=== PATIENT | male | born 1990 | race American Indian/Alaskan Native ===

== ENCOUNTER 2017-12-01 15:10 | Emergency (ER) | payer SELFPAY ==
[2017-12-01 15:45] VITALS: BP 111/55
[2017-12-01 17:05] LABS: Basophils % (Auto) 0.4 % (0.0-1.8); Eosinophils % (Auto) 0.1 % (0.0-4.3); Hematocrit 45.2 % (35.5-45.6); Hemoglobin 15.1 gm/dl (11.8-15.2); Lymphocytes # (Auto) 1.7 K/mm3 (1.2-5.4); Mean Corpuscular HGB Conc 33 % (32-34); Mean Corpuscular Hemoglobin 31 pg (28-32); Mean Corpuscular Volume 91 fl (84-94); Monocytes # (Auto) 0.7 K/mm3 (0.0-0.8); Monocytes % (Auto) 7.6 % (0.0-7.3); Platelet Count 205 K/mm3 (140-440); Red Blood Count 4.95 M/mm3 (3.65-5.03); Red Cell Distribution Width 14.5 % (13.2-15.2)
[2017-12-01 17:19] LABS: Alanine Aminotransferase 17 units/L (7-56); Albumin 4.3 g/dL (3.9-5); BUN/Creatinine Ratio 14; Blood Urea Nitrogen 13 mg/dL (9-20); Hemolysis Index 8
== END 2017-12-02 00:53 | disposition left against medical advice (07) ==
LOC: ED 15:10
DX: Z53.21 Procedure and treatment not carried out due to patient leaving prior to being seen by health care provider (principal)
CPT/HCPCS: 36415; 80053; 85025

== ENCOUNTER 2018-02-14 09:30 | Inpatient (IN) | payer OTHER ==
[2018-02-14] MEDS ORDERED: ZOFRAN IV ONE ×2 (10:00→12:21)
[2018-02-14] MEDS ORDERED: NACL 0.9% 1000 ML 1,000 ML IV ONE ×2 (10:00→12:37)
[2018-02-14] MEDS ORDERED: PROTONIX IV ONE (10:00)
[2018-02-14] MEDS ORDERED: MORPHINE IV ONE ×2 (10:32→14:25)
[2018-02-14 10:55] LABS: Basophils % (Auto) 0.5 % (0.0-1.8); Eosinophils % (Auto) 0.3 % (0.0-4.3); Hematocrit 46.5 % (35.5-45.6); Hemoglobin 15.4 gm/dl (11.8-15.2); Lymphocytes # (Auto) 1.9 K/mm3 (1.2-5.4); Lymphocytes % (Auto) 22.5 % (13.4-35.0); Mean Corpuscular HGB Conc 33 % (32-34); Mean Corpuscular Hemoglobin 30 pg (28-32); Mean Corpuscular Volume 91 fl (84-94); Monocytes # (Auto) 0.8 K/mm3 (0.0-0.8); Monocytes % (Auto) 9.5 % (0.0-7.3); Red Blood Count 5.11 M/mm3 (3.65-5.03); Red Cell Distribution Width 14.2 % (13.2-15.2)
[2018-02-14 10:58] LABS: Amorphous Crystals,Urine Few; Bacteria,Urine 1+ /HPF (Negative); Bilirubin,Urine NEG (Negative); Blood,Urine NEG (Negative); Color,Urine Yellow (Yellow); Mucus,Urine FEW /HPF; Protein,Urine <15 mg/dL mg/dL (Negative)
--- NOTE | 2018-02-14 11:01 | XRay Report ---
AP CHEST: HISTORY: Pain AP view of the chest demonstrates a normal mediastinal and cardiac contour with clear lungs and normal bony and soft tissue structures. IMPRESSION: Unremarkable AP chest.
[2018-02-14 11:09] LABS: Amphetamine Screen,Urine PRESUMPTIVE NEGATIVE; Benzodiazepines Screen,Urine PRESUMPTIVE NEGATIVE; Methadone Screen,Urine PRESUMPTIVE NEGATIVE; Opiate Screen,Urine PRESUMPTIVE NEGATIVE
[2018-02-14 11:10] LABS: Platelet Count 183 K/mm3 (140-440)
[2018-02-14 11:10] LABS: INR 0.98 (0.87-1.13)
[2018-02-14 11:11] LABS: BUN/Creatinine Ratio 15; Blood Urea Nitrogen 16 mg/dL (9-20); Calcium 8.8 mg/dL (8.4-10.2); Hemolysis Index 3
[2018-02-14 11:11] LABS: Partial Thromboplastin Time 27.9 Sec. (24.2-36.6)
[2018-02-14 11:13] LABS: Albumin 4.3 g/dL (3.9-5); Bilirubin,Direct 0.2 mg/dL (0-0.2)
[2018-02-14 11:38] LABS: Cannabinoid Screen,Urine PRESUMPTIVE POSITIVE; Cocaine Screen,Urine PRESUMPTIVE POSITIVE
[2018-02-14] MEDS ORDERED: NACL ONE (12:12)
--- NOTE | 2018-02-14 12:14 | Cat Scan Report ---
CT ABDOMEN PELVIS WITH CONTRAST: HISTORY: Abdominal pain, GI bleeding. COMPARISON: none. TECHNIQUE: Helical CT in 1.25mm intervals following IV contrast. Sagittal and coronal reconstructions. FINDINGS: Lung bases: Normal. Liver: Normal. Biliary system: Normal. Pancreas: Normal. Spleen: Normal. Kidneys/ureters/bladder: Normal. Adrenal glands: Normal. Aorta: Normal. Intestines: Normal. Appendix: Normal. Pelvic viscera: Normal. Ascites: None. Adenopathy: None. Musculoskeletal: Normal. IMPRESSION: Unremarkable CT scan of the abdomen and pelvis with contrast.
[2018-02-14] MEDS ORDERED: ZOFRAN ONE (12:18)
--- NOTE | 2018-02-14 12:29 | Emergency Department Report ---
ED General Adult HPI - General Chief complaint: Abdominal Pain Stated complaint: ABD PAIN Time Seen by Provider: 02/14/18 10:00 Source: EMS Mode of arrival: Stretcher Limitations: No Limitations - History of Present Illness Initial comments: Patient is a 27-year-old male who was transported to this facility via EMS. Paramedics state that there was a large can that was filled with several ounces of hussain blood. The patient is somewhat lethargic and somewhat unwilling to provide any historical information. He complains of abdominal pain but doesn't specify where. He says some ongoing nausea but no repeat hematemesis. Apparently the patient has been admitted more and wants with hematemesis. Records indicate that he had previous endoscopy showing gastritis. His last admission was in 2014. Apparently he is abusing cocaine. -: unknown Severity scale (0 -10): 9 Quality: other (patient unwilling to communicate) Consistency: constant Improves with: none Worsens with: none Associated Symptoms: nausea/vomiting. denies: chest pain, shortness of breath - Related Data Home Medications Medication Instructions Recorded Confirmed Last Taken Omeprazole Magnesium [PriLOSEC Otc] 20 mg PO BID 11/17/14 09/28/16 11/14/14 Previous Rx's Medication Instructions Recorded Last Taken Type Ondansetron [Zofran ODT TAB] 4 mg PO Q6H #10 tab.rapdis 11/17/14 Unknown Rx Famotidine [Pepcid] 10 mg PO BID #30 tablet 06/24/15 Unknown Rx Omeprazole Magnesium [PriLOSEC Otc] 40 mg PO QDAY #60 tablet. 06/24/15 Unknown Rx Famotidine [Pepcid] 20 mg PO BID #30 tablet 09/28/16 Unknown Rx HYDROcodone/APAP 5-325 [[place] 1 each PO Q6HR PRN #10 tablet 09/28/16 Unknown Rx 5/325] Promethazine [Phenergan TAB] 25 mg PO Q6HR PRN #20 tab 09/28/16 Unknown Rx Promethazine [Phenergan] 25 mg [place] Q6HR PRN #10 supp.rect 09/28/16 Unknown Rx Allergies Allergy/AdvReac Type Severity Reaction Status Date / Time No Known Allergies Allergy Verified 02/14/18 09:52 ED Review of Systems ROS: Stated complaint: ABD PAIN Other details as noted in HPI Comment: Unobtainable due to pts medical conditions ED Past Medical Hx - Past Medical History Hx Congestive Heart Failure: No Hx Diabetes: No Hx Asthma: Yes Hx COPD: No Additional medical history: Gastritis, duodenitis. Hx of ETOH abuse - Surgical History Additional Surgical History: tonsillectomy - Social History Smoking Status: Current Every Day Smoker Substance Use Type: Alcohol, Cocaine, Marijuana - Medications Home Medications: Home Medications Medication Instructions Recorded Confirmed Last Taken Type Omeprazole Magnesium [PriLOSEC Otc] 20 mg PO BID 11/17/14 09/28/16 11/14/14 History Ondansetron [Zofran ODT TAB] 4 mg PO Q6H #10 tab.rapdis 11/17/14 09/28/16 Unknown Rx Famotidine [Pepcid] 10 mg PO BID #30 tablet 06/24/15 09/28/16 Unknown Rx Omeprazole Magnesium [PriLOSEC Otc] 40 mg PO QDAY #60 tablet. 06/24/15 Unknown Rx Famotidine [Pepcid] 20 mg PO BID #30 tablet 09/28/16 Unknown Rx HYDROcodone/APAP 5-325 [[place] 1 each PO Q6HR PRN #10 tablet 09/28/16 Unknown Rx 5/325] Promethazine [Phenergan TAB] 25 mg PO Q6HR PRN #20 tab 09/28/16 Unknown Rx Promethazine [Phenergan] 25 mg [place] Q6HR PRN #10 supp.rect 09/28/16 Unknown Rx ED Physical Exam - General Limitations: No Limitations General appearance: in no apparent distress, lethargic - Head Head exam: Present: atraumatic, normocephalic - Eye Eye exam: Present: normal appearance, PERRL, EOMI. Absent: scleral icterus - ENT ENT exam: Present: mucous membranes moist - Neck Neck exam: Present: normal inspection. Absent: tenderness, meningismus - Respiratory Respiratory exam: Present: normal lung sounds bilaterally. Absent: respiratory distress - Cardiovascular Cardiovascular Exam: Present: regular rate, normal rhythm. Absent: systolic murmur, diastolic murmur, rubs, gallop - GI/Abdominal GI/Abdominal exam: Present: soft, tenderness (somewhat diffusely), normal bowel sounds. Absent: distended, guarding, rebound, rigid, organomegaly, mass, bruit , pulsatile mass - Rectal Rectal exam: Present: deferred - Extremities Exam Extremities exam: Present: normal inspection - Back Exam Back exam: Present: normal inspection. Absent: CVA tenderness (R), CVA tenderness (L) - Neurological Exam Neurological exam: Present: alert, oriented X3, CN II-XII intact. Absent: motor sensory deficit - Psychiatric Psychiatric exam: Present: normal mood, flat affect - Skin Skin exam: Present: warm, dry, intact, normal color. Absent: rash ED Course Vital Signs 02/14/18 02/14/18 02/14/18 09:47 09:53 10:00 Temperature 98.4 F Pulse Rate 54 L 50 L 43 L Respiratory 15 14 11 L Rate Blood Pressure 118/71 121/66 O2 Sat by Pulse 100 100 100 Oximetry 02/14/18 02/14/18 02/14/18 10:15 10:30 10:46 Temperature Pulse Rate 54 L 42 L 48 L Respiratory 11 L 10 L 8 L Rate Blood Pressure 117/68 127/75 127/75 O2 Sat by Pulse 99 99 100 Oximetry 02/14/18 02/14/18 02/14/18 11:00 11:16 11:30 Temperature Pulse Rate 45 L 45 L 46 L Respiratory 10 L 20 7 L Rate Blood Pressure 127/75 127/75 127/75 O2 Sat by Pulse 98 97 91 Oximetry 02/14/18 11:46 Temperature Pulse Rate 45 L Respiratory 8 L Rate Blood Pressure 127/75 O2 Sat by Pulse 99 Oximetry - Reevaluation(s) Reevaluation #1: Given the patient Protonix and a volume bolus. His urine was positive for cocaine. 02/14/18 12:39 02/14/18 12:40 I wouldn't be surprised that the patient's CK comes back elevated. This is yet pending. A CT of the abdomen showed nothing acute. Reevaluation #2: Abdomen is no longer tender. Patient states that he needs more fluid. Additional IV fluid is ordered. CK is yet pending. I spoke to Dr. Vasquez. The patient is admitted for further care and evaluation in stable condition. 02/14/18 12:42 ED Medical Decision Making - Lab Data Result diagrams: 02/14/18 10:27 02/14/18 10:27 Laboratory Results - last 24 hr 02/14/18 02/14/18 02/14/18 10:27 10:27 10:27 WBC 8.3 RBC 5.11 H Hgb 15.4 H Hct 46.5 H MCV 91 MCH 30 MCHC 33 RDW 14.2 Plt Count 183 Lymph % (Auto) 22.5 [place] % (Auto) 9.5 H Eos % (Auto) 0.3 Baso % (Auto) 0.5 Lymph # 1.9 [place] # 0.8 Eos # 0.0 Baso # 0.0 Seg Neutrophils % 67.2 Seg Neutrophils # 5.6 PT INR APTT Sodium 140 Potassium 3.7 Chloride 102.6 Carbon Dioxide 22 Anion Gap 19 BUN 16 Creatinine 1.1 Estimated GFR > 60 BUN/Creatinine Ratio 15 Glucose 106 H Lactic Acid Calcium 8.8 Magnesium Total Bilirubin 1.00 Direct Bilirubin 0.2 Indirect Bilirubin 0.8 AST 18 ALT 22 Alkaline Phosphatase 64 Total Protein 6.9 Albumin 4.3 Albumin/Globulin Ratio 1.7 Lipase 36 Urine Color Urine Turbidity Urine pH Ur Specific [place] Urine Protein Urine Glucose (UA) Urine Ketones Urine Blood Urine Nitrite Urine Bilirubin Urine Urobilinogen Ur Leukocyte Esterase Urine WBC (Auto) Urine RBC (Auto) U Epithel Cells (Auto) Urine Bacteria (Auto) Amorphous Crystals Urine Mucus Urine Opiates Screen Urine Methadone Screen Ur Barbiturates Screen Ur Phencyclidine Scrn Ur Amphetamines Screen U Benzodiazepines Scrn Urine Cocaine Screen U Marijuana (THC) Screen Drugs of Abuse Note Blood Type Antibody Screen 02/14/18 02/14/18 02/14/18 10:27 10:27 10:33 WBC RBC Hgb Hct MCV MCH MCHC RDW Plt Count Lymph % (Auto) [place] % (Auto) Eos % (Auto) Baso % (Auto) Lymph # [place] # Eos # Baso # Seg Neutrophils % Seg Neutrophils # PT 13.5 INR 0.98 APTT 27.9 Sodium Potassium Chloride Carbon Dioxide Anion Gap BUN Creatinine Estimated GFR BUN/Creatinine Ratio Glucose Lactic Acid 1.90 Calcium Magnesium 1.80 Total Bilirubin Direct Bilirubin Indirect Bilirubin AST ALT Alkaline Phosphatase Total Protein Albumin Albumin/Globulin Ratio Lipase Urine Color Urine Turbidity Urine pH Ur Specific [place] Urine Protein Urine Glucose (UA) Urine Ketones Urine Blood Urine Nitrite Urine Bilirubin Urine Urobilinogen Ur Leukocyte Esterase Urine WBC (Auto) Urine RBC (Auto) U Epithel Cells (Auto) Urine Bacteria (Auto) Amorphous Crystals Urine Mucus Urine Opiates Screen Urine Methadone Screen Ur Barbiturates Screen Ur Phencyclidine Scrn Ur Amphetamines Screen U Benzodiazepines Scrn Urine Cocaine Screen U Marijuana (THC) Screen Drugs of Abuse Note Blood Type Antibody Screen 02/14/18 02/14/18 02/14/18 10:33 10:35 10:35 WBC RBC Hgb Hct MCV MCH MCHC RDW Plt Count Lymph % (Auto) [place] % (Auto) Eos % (Auto) Baso % (Auto) Lymph # [place] # Eos # Baso # Seg Neutrophils % Seg Neutrophils # PT INR APTT Sodium Potassium Chloride Carbon Dioxide Anion Gap BUN Creatinine Estimated GFR BUN/Creatinine Ratio Glucose Lactic Acid Calcium Magnesium Total Bilirubin Direct Bilirubin Indirect Bilirubin AST ALT Alkaline Phosphatase Total Protein Albumin Albumin/Globulin Ratio Lipase Urine Color Yellow Urine Turbidity Clear Urine pH 6.0 Ur Specific [place] 1.025 Urine Protein <15 mg/dl Urine Glucose (UA) Neg Urine Ketones Tr Urine Blood Neg Urine Nitrite Neg Urine Bilirubin Neg Urine Urobilinogen 4.0 Ur Leukocyte Esterase Neg Urine WBC (Auto) 5.0 Urine RBC (Auto) 2.0 U Epithel Cells (Auto) < 1.0 Urine Bacteria (Auto) 1+ Amorphous Crystals Few Urine Mucus Few Urine Opiates Screen Presumptive negative Urine Methadone Screen Presumptive negative Ur Barbiturates Screen Presumptive negative Ur Phencyclidine Scrn Presumptive negative Ur Amphetamines Screen Presumptive negative U Benzodiazepines Scrn Presumptive negative Urine Cocaine Screen Presumptive positive U Marijuana (THC) Screen Presumptive positive Drugs of Abuse Note Disclamer Blood Type A POSITIVE Antibody Screen Negative - EKG Data -: EKG Interpreted by Ar EKG shows normal: sinus rhythm, axis, intervals, QRS complexes, ST-T waves Rate: bradycardia - EKG Data Interpretation: no acute changes - Radiology Data Radiology results: report reviewed Critical care attestation.: If time is entered above; I have spent that time in minutes in the direct care of this critically ill patient, excluding procedure time. ED Disposition Clinical Impression: Upper GI bleeding, Cocaine abuse Disposition: 09 OP ADMIT IP TO THIS HOSP Is pt being admited?: Yes Does the pt Need Aspirin: No (hold due to GI bleeding) Condition: Stable Referrals: PRIMARY CARE, [Primary Care Provider] - 3-5 Days Time of Disposition: 12:43
[2018-02-14 12:47] LABS: Creatine Kinase MB 1.4 ng/mL (0.0-4.0)
[2018-02-14] MEDS ORDERED: MORPHINE ONE (14:22)
--- NOTE | 2018-02-14 18:17 | History and Physical Report ---
History of Present Illness Date of examination: 02/14/18 Date of admission: 02/14/18 12:29 Chief complaint: Chief complaint: Vomiting blood since 2 days. History of present illness: -History of Present Illness 27-year-old -Romanian male with no significant past medical history except for gastroesophageal reflux disease and was on PPIs in the past about 3 years ago comes in for vomiting hussain blood since last 2 days. Had about 6-8 episodes of hussain blood in vomit in the last 48 hours. Patient has been taking Goody powders for headaches on a regular basis. Has some lightheadedness. No syncope. No fever no chills. He had a previous endoscopy showing gastritis and 2015 Past Medical History Hx Asthma: Yes Additional medical history: Gastritis, duodenitis. Hx of ETOH abuse Surgical History Additional Surgical History: tonsillectomy Social History Smoking Status: Current Every Day Smoker Substance Use Type: Alcohol, Cocaine, Marijuana Medications Home Medications: Home Medications Medication Instructions Recorded Confirmed Last Taken Type Omeprazole Magnesium [PriLOSEC Otc] 20 mg PO BID 11/17/14 09/28/16 11/14/14 History Ondansetron [Zofran ODT TAB] 4 mg PO Q6H #10 tab.rapdis 11/17/14 09/28/16 Unknown Rx Famotidine [Pepcid] 10 mg PO BID #30 tablet 06/24/15 09/28/16 Unknown Rx Omeprazole Magnesium [PriLOSEC Otc] 40 mg PO QDAY #60 tablet. 06/24/15 Unknown Rx Famotidine [Pepcid] 20 mg PO BID #30 tablet 09/28/16 Unknown Rx HYDROcodone/APAP 5-325 [[place] 1 each PO Q6HR PRN #10 tablet 09/28/16 Unknown Rx 5/325] Promethazine [Phenergan TAB] 25 mg PO Q6HR PRN #20 tab 09/28/16 Unknown Rx Promethazine [Phenergan] 25 mg [place] Q6HR PRN #10 supp.rect 09/28/16 Unknown Rx Medications and Allergies Allergies Allergy/AdvReac Type Severity Reaction Status Date / Time No Known Allergies Allergy Verified 02/14/18 09:52 Home Medications Medication Instructions Recorded Confirmed Last Taken Type Omeprazole Magnesium [PriLOSEC Otc] 20 mg PO BID 01/12/3109/28/16 11/14/14 History Ondansetron [Zofran ODT TAB] 4 mg PO Q6H #10 tab.rapdis 11/17/14 09/28/16 Unknown Rx Famotidine [Pepcid] 10 mg PO BID #30 tablet 06/24/15 09/28/16 Unknown Rx Omeprazole Magnesium [PriLOSEC Otc] 40 mg PO QDAY #60 tablet. 06/24/15 Unknown Rx Famotidine [Pepcid] 20 mg PO BID #30 tablet 09/28/16 Unknown Rx HYDROcodone/APAP 5-325 [[place] 1 each PO Q6HR PRN #10 tablet 09/28/16 Unknown Rx 5/325] Promethazine [Phenergan TAB] 25 mg PO Q6HR PRN #20 tab 09/28/16 Unknown Rx Promethazine [Phenergan] 25 mg [place] Q6HR PRN #10 supp.rect 09/28/16 Unknown Rx Review of Systems All systems: negative Constitutional: no weight loss, no weight gain, no fever, no chills, no sweats, no night sweats Ears, nose, mouth and throat: no dysphagia, no hoarseness, no sore throat, no swelling in mouth, no swelling in throat, no odynophagia Cardiovascular: no chest pain, no orthopnea, no palpitations, no rapid/ irregular heart beat, no edema, no syncope, no lightheadedness, no shortness of breath Respiratory: no cough, no cough with sputum, no excessive sputum, no hemoptysis , no shortness of breath, no dyspnea on exertion Gastrointestinal: hematemesis, coffee ground emesis, heartburn, no abdominal pain, no nausea, no vomiting, no diarrhea, no constipation, no change in bowel habits Genitourinary Male: no dysuria, no hematuria, no flank pain, no discharge, no urinary frequency, no urinary hesitancy, no nocturia, no incontinence Rectal: pain, other (occult blood positive stools) Musculoskeletal: no neck stiffness, no neck pain, no shooting arm pain, no arm numbness/tingling, no low back pain, no shooting leg pain, no leg numbness/ tingling, no redness of joints Integumentary: no rash, no pruritis, no redness, no sores, no wounds, no jaundice, no boils, no blisters Neurological: no head injury, no transient paralysis, no paralysis, no weakness , no parathesias, no numbness, no tingling, no seizures, no syncope, no tremors , no ataxia, no lack of coordination Psychiatric: no anxiety, no memory loss, no change in sleep habits, no sleep disturbances, no insomnia, no hypersomnia, no change in appetite, no change in libido, no suicidal ideation, no disorientation, no hallucinations Endocrine: no cold intolerance, no heat intolerance, no polyphagia, no excessive thirst, no polydipsia, no polyuria, no nocturia, no excessive sweating , no flushing, no weight change Hematologic/Lymphatic: no easy bruising, no easy bleeding Allergic/Immunologic: no urticaria, no allergic rhinitis, no wheezing Exam - Physical Exam Narrative exam: Lying in bed comfortably. Vomited blood 2 in the emergency room - Constitutional Vitals: Temp Pulse Resp BP Pulse Ox 97.9 F 44 L 19 108/70 96 02/14/18 13:39 02/14/18 17:00 02/14/18 16:46 02/14/18 17:00 02/14/18 17:00 General appearance: Present: no acute distress, well-nourished - EENT Eyes: Present: PERRL ENT: hearing intact, clear oral mucosa - Neck Neck: Present: supple, normal ROM - Respiratory Respiratory effort: normal Respiratory: bilateral: CTA - Cardiovascular Heart rate: 96 Rhythm: regular Heart Sounds: Present: S1 & S2. Absent: rub, click - Extremities Extremities: no ischemia, pulses intact, pulses symmetrical, No edema Peripheral Pulses: within normal limits - Abdominal General gastrointestinal: Present: soft, non-tender, non-distended, normal bowel sounds Male genitourinary: Present: normal - Rectal Rectal Exam: other (occult blood positive) - Integumentary Integumentary: Present: clear, warm, dry - Musculoskeletal Musculoskeletal: gait normal, strength equal bilaterally - Psychiatric Psychiatric: appropriate mood/affect, intact judgment & insight - Neurologic Neurologic: CNII-XII intact, moves all extremities - Allied Health Allied health notes reviewed: nursing, case management Results - Labs CBC & Chem 7: 02/14/18 10:27 02/14/18 10:27 Labs: Laboratory Last Values WBC 8.3 K/mm3 (4.5-11.0) 02/14/18 10:27 RBC 5.11 M/mm3 (3.65-5.03) H 02/14/18 10:27 Hgb 15.4 gm/dl (11.8-15.2) H 02/14/18 10:27 Hct 46.5 % (35.5-45.6) H 02/14/18 10:27 MCV 91 fl (84-94) 02/14/18 10:27 MCH 30 pg (28-32) 02/14/18 10:27 MCHC 33 % (32-34) 02/14/18 10:27 RDW 14.2 % (13.2-15.2) 02/14/18 10:27 Plt Count 183 K/mm3 (140-440) 02/14/18 10:27 Lymph % (Auto) 22.5 % (13.4-35.0) 02/14/18 10:27 [place] % (Auto) 9.5 % (0.0-7.3) H 02/14/18 10:27 Eos % (Auto) 0.3 % (0.0-4.3) 02/14/18 10:27 Baso % (Auto) 0.5 % (0.0-1.8) 02/14/18 10:27 Lymph # 1.9 K/mm3 (1.2-5.4) 02/14/18 10:27 [place] # 0.8 K/mm3 (0.0-0.8) 02/14/18 10:27 Eos # 0.0 K/mm3 (0.0-0.4) 02/14/18 10:27 Baso # 0.0 K/mm3 (0.0-0.1) 02/14/18 10:27 Seg Neutrophils % 67.2 % (40.0-70.0) 02/14/18 10: Seg Neutrophils # 5.6 K/mm3 (1.8-7.7) 02/14/18 10:27 PT 13.5 Sec. (12.2-14.9) 02/14/18 10:33 INR 0.98 (0.87-1.13) 02/14/18 10:33 APTT 27.9 Sec. (24.2-36.6) 02/14/18 10:33 Sodium 140 mmol/L (137-145) 02/14/18 10:27 Potassium 3.7 mmol/L (3.6-5.0) 02/14/18 10:27 Chloride 102.6 mmol/L (98-107) 02/14/18 10:27 Carbon Dioxide 22 mmol/L (22-30) 02/14/18 10:27 Anion Gap 19 mmol/L 02/14/18 10:27 BUN 16 mg/dL (9-20) 02/14/18 10:27 Creatinine 1.1 mg/dL (0.8-1.5) 02/14/18 10:27 Estimated GFR > 60 ml/min 02/14/18 10:27 BUN/Creatinine Ratio 15 % 02/14/18 10:27 Glucose 106 mg/dL (75-100) H 02/14/18 10:27 Lactic Acid 1.90 mmol/L (0.7-2.0) 02/14/18 10:27 Calcium 8.8 mg/dL (8.4-10.2) 02/14/18 10:27 Magnesium 1.80 mg/dL (1.7-2.3) 02/14/18 10:27 Total Bilirubin 1.00 mg/dL (0.1-1.2) 02/14/18 10:27 Direct Bilirubin 0.2 mg/dL (0-0.2) 02/14/18 10:27 Indirect Bilirubin 0.8 mg/dL 02/14/18 10:27 AST 18 units/L (5-40) 02/14/18 10:27 ALT 22 units/L (7-56) 02/14/18 10:27 Alkaline Phosphatase 64 units/L (35-129) 02/14/18 10:27 Total Creatine Kinase 166 units/L (55-170) 02/14/18 10:27 CK-MB (CK-2) 1.4 ng/mL (0.0-4.0) 02/14/18 10:27 CK-MB (CK-2) Rel Index 0.8 (0-4) 02/14/18 10:27 Total Protein 6.9 g/dL (6.3-8.2) 02/14/18 10:27 Albumin 4.3 g/dL (3.9-5) 02/14/18 10:27 Albumin/Globulin Ratio 1.7 % 02/14/18 10:27 Lipase 36 units/L (13-60) 02/14/18 10:27 Urine Color Yellow (Yellow) 02/14/18 10:35 Urine Turbidity Clear (Clear) 02/14/18 10:35 Urine pH 6.0 (5.0-7.0) 02/14/18 10:35 Ur Specific [place] 1.025 (1.003-1.030) 02/14/18 10:35 Urine Protein <15 mg/dl mg/dL (Negative) 02/14/18 10:35 Urine Glucose (UA) Neg mg/dL (Negative) 02/14/18 10:35 Urine Ketones Tr mg/dL (Negative) 02/14/18 10:35 Urine Blood Neg (Negative) 02/14/18 10:35 Urine Nitrite Neg (Negative) 02/14/18 10:35 Urine Bilirubin Neg (Negative) 02/14/18 10:35 Urine Urobilinogen 4.0 mg/dL (<2.0) 02/14/18 10:35 Ur Leukocyte Esterase Neg (Negative) 02/14/18 10:35 Urine WBC (Auto) 5.0 /HPF (0.0-6.0) 02/14/18 10:35 Urine RBC (Auto) 2.0 /HPF (0.0-6.0) 02/14/18 10:35 U Epithel Cells (Auto) < 1.0 /HPF (0-13.0) 02/14/18 10:35 Urine Bacteria (Auto) 1+ /HPF (Negative) 02/14/18 10:35 Amorphous Crystals Few 02/14/18 10:35 Urine Mucus Few /HPF 02/14/18 10:35 Urine Opiates Screen Presumptive negative 02/14/18 10:35 Urine Methadone Screen Presumptive negative 02/14/18 10:35 Ur Barbiturates Screen Presumptive negative 02/14/18 10:35 Ur Phencyclidine Scrn Presumptive negative 02/14/18 10:35 Ur Amphetamines Screen Presumptive negative 02/14/18 10:35 U Benzodiazepines Scrn Presumptive negative 02/14/18 10:35 Urine Cocaine Screen Presumptive positive 02/14/18 10:35 U Marijuana (THC) Screen Presumptive positive 02/14/18 10:35 Drugs of Abuse Note Disclamer 02/14/18 10:35 Blood Type A POSITIVE 02/14/18 10:33 Antibody Screen Negative 02/14/18 10:33 Short CBC 02/14/18 Range/Units 10:27 WBC 8.3 (4.5-11.0) K/mm3 Hgb 15.4 H (11.8-15.2) gm/dl Hct 46.5 H (35.5-45.6) % Plt Count 183 (140-440) K/mm3 BMP 02/14/18 10:27 Sodium 140 Potassium 3.7 Chloride 102.6 Carbon Dioxide 22 BUN 16 Creatinine 1.1 Glucose 106 H Calcium 8.8 Cardiac Enzymes 02/14/18 Range/Units 10:27 Total Creatine Kinase 166 (55-170) units/L CK-MB (CK-2) 1.4 (0.0-4.0) ng/mL Liver Function 02/14/18 Range/Units 10:27 Total Bilirubin 1.00 (0.1-1.2) mg/dL Direct Bilirubin 0.2 (0-0.2) mg/dL AST 18 (5-40) units/L ALT 22 (7-56) units/L Alkaline Phosphatase 64 (35-129) units/L Albumin 4.3 (3.9-5) g/dL Urine 02/14/18 Range/Units 10:35 Urine Color Yellow (Yellow) Urine pH 6.0 (5.0-7.0) Ur Specific [place] 1.025 (1.003-1.030) Urine Protein <15 mg/dl (Negative) mg/dL Urine Glucose (UA) Neg (Negative) mg/dL - Imaging and Cardiology Chest x-ray: report reviewed (no acute findings) CT scan - abdomen: report reviewed (no acute findings) Assessment and Plan Advance Directives: Yes (full code) VTE prophylaxis?: Chemical Plan of care discussed with patient/family: Yes - Patient Problems (1) Upper GI bleed Current Visit: Yes Status: Acute Plan to address problem: Patient has active upper GI bleed. Probably secondary to duodenal ulcer versus severe gastritis secondary to Goody powders. Patient has been taking Goody powders on a regular basis for headaches. Patient had similar episode in 2014 and had upper endoscopy. Was diagnosed with gastritis. IV Protonix initiated GI consult requested Transfuse if necessary. Monitor hemoglobin and hematocrit. (2) Cocaine abuse Current Visit: Yes Status: Acute Plan to address problem: Patient counseled about cocaine use. Abdominal CAT scan was done to rule out ischemic bowel secondary to cocaine as per the emergency room physician. (3) DVT prophylaxis Current Visit: No Status: Acute Plan to address problem: Only SCDs
[2018-02-14] MEDS ORDERED: TYLENOL PO PRN (18:28)
[2018-02-14] MEDS ORDERED: SODIUM CHLORIDE FLUSH SYRINGE 10 ML IV PRN (18:28)
[2018-02-14] MEDS ORDERED: ZOFRAN IV PRN (18:28)
[2018-02-14 21:05] LABS: Hematocrit 43.3 % (35.5-45.6); Hemoglobin 14.7 gm/dl (11.8-15.2)
[2018-02-14] MEDS: MORPHINE IV PRN (23:03)
[2018-02-14] MEDS: PROTONIX IV SCH (23:03)
[2018-02-14] MEDS: D5NS 1,000 ML IV SCH (23:04)
[2018-02-14] MEDS: SODIUM CHLORIDE FLUSH SYRINGE 10 ML IV SCH (23:18)
[2018-02-15 02:57] LABS: Basophils % (Auto) 0.6 % (0.0-1.8); Eosinophils # (Auto) 0.1 K/mm3 (0.0-0.4); Eosinophils % (Auto) 0.9 % (0.0-4.3); Hematocrit 41.5 % (35.5-45.6); Hemoglobin 13.9 gm/dl (11.8-15.2); Lymphocytes # (Auto) 2.7 K/mm3 (1.2-5.4); Lymphocytes % (Auto) 36.4 % (13.4-35.0); Mean Corpuscular HGB Conc 34 % (32-34); Mean Corpuscular Hemoglobin 30 pg (28-32); Mean Corpuscular Volume 90 fl (84-94); Monocytes # (Auto) 0.7 K/mm3 (0.0-0.8); Monocytes % (Auto) 9.3 % (0.0-7.3); Platelet Count 199 K/mm3 (140-440); Red Cell Distribution Width 14.2 % (13.2-15.2)
[2018-02-15 03:05] LABS: Alanine Aminotransferase 14 units/L (7-56); Albumin 3.7 g/dL (3.9-5); BUN/Creatinine Ratio 14; Blood Urea Nitrogen 13 mg/dL (9-20); Calcium 8.2 mg/dL (8.4-10.2); Hemolysis Index 2
[2018-02-15] MEDS: MORPHINE IV PRN ×4 (04:06→17:59)
--- NOTE | 2018-02-15 09:15 | Gastroenterology Consultation ---
<BEVERLEY PADILLA - Last Filed: 02/15/18 09:15> History of Present Illness - Reason for Consult Consult date: 02/15/18 hematemesis Requesting physician: HUAN RAMEY - History of Present Illness Patient is a 27 y/o male with PMH of GERD and ETOH/substance abuse (urine positive for cocaine and marijuana this admission) who presented to ED with c/o abd pain and hematemesis. Abd CT negative. He reports epigastric pain with N/V that began on Thursday with 2-3 episodes of non-bloody emesis that turned to a dark coffee-ground color and then became bright red bloody emesis with further episodes of vomiting. No active signs of bleeding overnight or this am. No melena or hematochezia. Admits to continued mild epigastric pain and nausea this morning but denies fever, wt loss, CP, SOB, dizziness, dysphagia, odynophagia, diarrhea, or constipation. Takes Goodys powder for headaches on a regular basis. Drinks alcohol daily. No hx of PUD or liver disease. Patient has been hospitalized a few other times in the past for similar symptoms with Last EGD in 2013 that revealed moderate duodenitis and severe gastritis. Past History Past Medical History: GERD Past Surgical History: tonsillectomy Social history: smoking, alcohol abuse, other (substance abuse (cocaine and marijuana)) Medications and Allergies Allergies Allergy/AdvReac Type Severity Reaction Status Date / Time No Known Allergies Allergy Verified 02/14/18 09:52 Home Medications Medication Instructions Recorded Confirmed Last Taken Type Omeprazole Magnesium [PriLOSEC Otc] 20 mg PO BID 11/17/14 09/28/16 11/14/14 History Ondansetron [Zofran ODT TAB] 4 mg PO Q6H #10 tab.rapdis 11/17/14 09/28/16 Unknown Rx Famotidine [Pepcid] 10 mg PO BID #30 tablet 06/24/15 09/28/16 Unknown Rx Omeprazole Magnesium [PriLOSEC Otc] 40 mg PO QDAY #60 tablet. 06/24/15 Unknown Rx Famotidine [Pepcid] 20 mg PO BID #30 tablet 09/28/16 Unknown Rx HYDROcodone/APAP 5-325 [[place] 1 each PO Q6HR PRN #10 tablet 09/28/16 Unknown Rx 5/325] Promethazine [Phenergan TAB] 25 mg PO Q6HR PRN #20 tab 09/28/16 Unknown Rx Promethazine [Phenergan] 25 mg [place] Q6HR PRN #10 supp.rect 09/28/16 Unknown Rx Active Meds: Active Medications Acetaminophen (Tylenol) 650 mg PO Q4H PRN PRN Reason: Pain MILD(1-3)/Fever >100.5/LANG Dextrose/Sodium Chloride (D5ns) 1,000 mls @ 100 mls/hr IV DIRECT PENDING SALE TO [facility] Last Admin: 02/14/18 23:04 Dose: 100 mls/hr Influenza Virus Vaccine Quadrival (Fluarix Quad [id number](36 Mos+) 0.5 ml IM .ONCE ONE Stop: 02/16/18 12:01 Morphine Sulfate (Morphine) 2 mg IV Q4H PRN PRN Reason: Pain, Moderate (4-6) Last Admin: 02/15/18 08:16 Dose: 2 mg Ondansetron HCl (Zofran) 4 mg IV Q8H PRN PRN Reason: Nausea And Vomiting Last Admin: 02/15/18 00:16 Dose: 4 mg Pantoprazole Sodium (Protonix) 40 mg IV BID PENDING SALE TO [facility] Last Admin: 02/14/18 23:03 Dose: 40 mg Sodium Chloride (Sodium Chloride Flush Syringe 10 Ml) 10 ml IV BID PENDING SALE TO [facility] Last Admin: 02/14/18 23:18 Dose: Not Given Sodium Chloride (Sodium Chloride Flush Syringe 10 Ml) 10 ml IV PRN PRN PRN Reason: LINE FLUSH Review of Systems - Review of Systems All systems: negative Gastrointestinal: abdominal pain, nausea, vomiting, hematemesis Exam - Constitutional Vital Signs: Temp Pulse Resp BP Pulse Ox 98.9 F 43 L 14 114/65 96 02/15/18 05:00 02/15/18 05:00 02/15/18 05:00 02/15/18 05:00 02/15/18 05:00 General appearance: no acute distress, well-nourished - EENT Eyes: PERRL, EOM intact ENT: hearing intact - Respiratory Respiratory: bilateral: CTA - Cardiovascular Rhythm: other (bradycardia) Heart Sounds: Present: S1 & S2 - Gastrointestinal General gastrointestinal: Present: soft, tender (epigastric area), non-distended , normal bowel sounds - Integumentary Integumentary: Present: warm, dry - Neurologic Neurological: alert and oriented x3 - Labs CBC & Chem 7: 02/15/18 02:30 02/15/18 02:30 Lab Results: Laboratory Results - last 24 hr 02/14/18 02/14/18 02/14/18 10:27 10:27 10:27 WBC 8.3 RBC 5.11 H Hgb 15.4 H Hct 46.5 H MCV 91 MCH 30 MCHC 33 RDW 14.2 Plt Count 183 Lymph % (Auto) 22.5 [place] % (Auto) 9.5 H Eos % (Auto) 0.3 Baso % (Auto) 0.5 Lymph # 1.9 [place] # 0.8 Eos # 0.0 Baso # 0.0 Seg Neutrophils % 67.2 Seg Neutrophils # 5.6 PT INR APTT Sodium 140 Potassium 3.7 Chloride 102.6 Carbon Dioxide 22 Anion Gap 19 BUN 16 Creatinine 1.1 Estimated GFR > 60 BUN/Creatinine Ratio 15 Glucose 106 H Lactic Acid Calcium 8.8 Magnesium Total Bilirubin 1.00 Direct Bilirubin 0.2 Indirect Bilirubin 0.8 AST 18 ALT 22 Alkaline Phosphatase 64 Total Creatine Kinase CK-MB (CK-2) CK-MB (CK-2) Rel Index Total Protein 6.9 Albumin 4.3 Albumin/Globulin Ratio 1.7 Lipase 36 Urine Color Urine Turbidity Urine pH Ur Specific [place] Urine Protein Urine Glucose (UA) Urine Ketones Urine Blood Urine Nitrite Urine Bilirubin Urine Urobilinogen Ur Leukocyte Esterase Urine WBC (Auto) Urine RBC (Auto) U Epithel Cells (Auto) Urine Bacteria (Auto) Amorphous Crystals Urine Mucus Urine Opiates Screen Urine Methadone Screen Ur Barbiturates Screen Ur Phencyclidine Scrn Ur Amphetamines Screen U Benzodiazepines Scrn Urine Cocaine Screen U Marijuana (THC) Screen Drugs of Abuse Note Blood Type Antibody Screen 02/14/18 02/14/18 02/14/18 10:27 10:27 10:27 WBC RBC Hgb Hct MCV MCH MCHC RDW Plt Count Lymph % (Auto) [place] % (Auto) Eos % (Auto) Baso % (Auto) Lymph # [place] # Eos # Baso # Seg Neutrophils % Seg Neutrophils # PT INR APTT Sodium Potassium Chloride Carbon Dioxide Anion Gap BUN Creatinine Estimated GFR BUN/Creatinine Ratio Glucose Lactic Acid 1.90 Calcium Magnesium 1.80 Total Bilirubin Direct Bilirubin Indirect Bilirubin AST ALT Alkaline Phosphatase Total Creatine Kinase 166 CK-MB (CK-2) 1.4 CK-MB (CK-2) Rel Index 0.8 Total Protein Albumin Albumin/Globulin Ratio Lipase Urine Color Urine Turbidity Urine pH Ur Specific [place] Urine Protein Urine Glucose (UA) Urine Ketones Urine Blood Urine Nitrite Urine Bilirubin Urine Urobilinogen Ur Leukocyte Esterase Urine WBC (Auto) Urine RBC (Auto) U Epithel Cells (Auto) Urine Bacteria (Auto) Amorphous Crystals Urine Mucus Urine Opiates Screen Urine Methadone Screen Ur Barbiturates Screen Ur Phencyclidine Scrn Ur Amphetamines Screen U Benzodiazepines Scrn Urine Cocaine Screen U Marijuana (THC) Screen Drugs of Abuse Note Blood Type Antibody Screen 02/14/18 02/14/18 02/14/18 10:33 10:33 10:35 WBC RBC Hgb Hct MCV MCH MCHC RDW Plt Count Lymph % (Auto) [place] % (Auto) Eos % (Auto) Baso % (Auto) Lymph # [place] # Eos # Baso # Seg Neutrophils % Seg Neutrophils # PT 13.5 INR 0.98 APTT 27.9 Sodium Potassium Chloride Carbon Dioxide Anion Gap BUN Creatinine Estimated GFR BUN/Creatinine Ratio Glucose Lactic Acid Calcium Magnesium Total Bilirubin Direct Bilirubin Indirect Bilirubin AST ALT Alkaline Phosphatase Total Creatine Kinase CK-MB (CK-2) CK-MB (CK-2) Rel Index Total Protein Albumin Albumin/Globulin Ratio Lipase Urine Color Yellow Urine Turbidity Clear Urine pH 6.0 Ur Specific [place] 1.025 Urine Protein <15 mg/dl Urine Glucose (UA) Neg Urine Ketones Tr Urine Blood Neg Urine Nitrite Neg Urine Bilirubin Neg Urine Urobilinogen 4.0 Ur Leukocyte Esterase Neg Urine WBC (Auto) 5.0 Urine RBC (Auto) 2.0 U Epithel Cells (Auto) < 1.0 Urine Bacteria (Auto) 1+ Amorphous Crystals Few Urine Mucus Few Urine Opiates Screen Urine Methadone Screen Ur Barbiturates Screen Ur Phencyclidine Scrn Ur Amphetamines Screen U Benzodiazepines Scrn Urine Cocaine Screen U Marijuana (THC) Screen Drugs of Abuse Note Blood Type A POSITIVE Antibody Screen Negative 02/14/18 02/14/18 02/15/18 10:35 20:55 02:30 WBC 7.4 RBC 4.60 Hgb 14.7 13.9 Hct 43.3 41.5 MCV 90 MCH 30 MCHC 34 RDW 14.2 Plt Count 199 Lymph % (Auto) 36.4 H [place] % (Auto) 9.3 H Eos % (Auto) 0.9 Baso % (Auto) 0.6 Lymph # 2.7 [place] # 0.7 Eos # 0.1 Baso # 0.0 Seg Neutrophils % 52.8 Seg Neutrophils # 3.9 PT INR APTT Sodium Potassium Chloride Carbon Dioxide Anion Gap BUN Creatinine Estimated GFR BUN/Creatinine Ratio Glucose Lactic Acid Calcium Magnesium Total Bilirubin Direct Bilirubin Indirect Bilirubin AST ALT Alkaline Phosphatase Total Creatine Kinase CK-MB (CK-2) CK-MB (CK-2) Rel Index Total Protein Albumin Albumin/Globulin Ratio Lipase Urine Color Urine Turbidity Urine pH Ur Specific [place] Urine Protein Urine Glucose (UA) Urine Ketones Urine Blood Urine Nitrite Urine Bilirubin Urine Urobilinogen Ur Leukocyte Esterase Urine WBC (Auto) Urine RBC (Auto) U Epithel Cells (Auto) Urine Bacteria (Auto) Amorphous Crystals Urine Mucus Urine Opiates Screen Presumptive negative Urine Methadone Screen Presumptive negative Ur Barbiturates Screen Presumptive negative Ur Phencyclidine Scrn Presumptive negative Ur Amphetamines Screen Presumptive negative U Benzodiazepines Scrn Presumptive negative Urine Cocaine Screen Presumptive positive U Marijuana (THC) Screen Presumptive positive Drugs of Abuse Note Disclamer Blood Type Antibody Screen 02/15/18 02:30 WBC RBC Hgb Hct MCV MCH MCHC RDW Plt Count Lymph % (Auto) [place] % (Auto) Eos % (Auto) Baso % (Auto) Lymph # [place] # Eos # Baso # Seg Neutrophils % Seg Neutrophils # PT INR APTT Sodium 138 Potassium 4.1 Chloride 103.2 Carbon Dioxide 23 Anion Gap 16 BUN 13 Creatinine 0.9 Estimated GFR > 60 BUN/Creatinine Ratio 14 Glucose 97 Lactic Acid Calcium 8.2 L Magnesium Total Bilirubin 1.00 Direct Bilirubin Indirect Bilirubin AST 12 ALT 14 Alkaline Phosphatase 56 Total Creatine Kinase CK-MB (CK-2) CK-MB (CK-2) Rel Index Total Protein 5.8 L Albumin 3.7 L Albumin/Globulin Ratio 1.8 Lipase Urine Color Urine Turbidity Urine pH Ur Specific [place] Urine Protein Urine Glucose (UA) Urine Ketones Urine Blood Urine Nitrite Urine Bilirubin Urine Urobilinogen Ur Leukocyte Esterase Urine WBC (Auto) Urine RBC (Auto) U Epithel Cells (Auto) Urine Bacteria (Auto) Amorphous Crystals Urine Mucus Urine Opiates Screen Urine Methadone Screen Ur Barbiturates Screen Ur Phencyclidine Scrn Ur Amphetamines Screen U Benzodiazepines Scrn Urine Cocaine Screen U Marijuana (THC) Screen Drugs of Abuse Note Blood Type Antibody Screen Assessment and Plan 1.hematemesis 2.epigastric pain 3.Nausea/vomiting -HGB 13.9 -continue to monitor H/H and transfuse as needed -hold blood thinning medications -no active signs of bleeding overnight or this am -HD stable -Abd CT negative -last EGD 2013 revealed moderate duodenitis and severe gastritis -etiology unclear- most likely M-W tear vs PUD vs gastritis vs other -will schedule for EGD today -Keep NPO -continue PPI and supportive care -will follow <YELENA RIVERA - Last Filed: 02/15/18 12:24> Medications and Allergies Active Meds: Active Medications Acetaminophen (Tylenol) 650 mg PO Q4H PRN PRN Reason: Pain MILD(1-3)/Fever >100.5/LANG Dextrose/Sodium Chloride (D5ns) 1,000 mls @ 100 mls/hr IV DIRECT PENDING SALE TO [facility] Last Admin: 02/14/18 23:04 Dose: 100 mls/hr Influenza Virus Vaccine Quadrival (Fluarix Quad [id number](36 Mos+) 0.5 ml IM .ONCE ONE Stop: 02/16/18 12:01 Morphine Sulfate (Morphine) 2 mg IV Q4H PRN PRN Reason: Pain, Moderate (4-6) Last Admin: 02/15/18 12:12 Dose: 2 mg Ondansetron HCl (Zofran) 4 mg IV Q8H PRN PRN Reason: Nausea And Vomiting Last Admin: 02/15/18 00:16 Dose: 4 mg Pantoprazole Sodium (Protonix) 40 mg IV BID PENDING SALE TO [facility] Last Admin: 02/15/18 10:12 Dose: 40 mg Sodium Chloride (Sodium Chloride Flush Syringe 10 Ml) 10 ml IV BID PENDING SALE TO [facility] Last Admin: 02/15/18 10:12 Dose: 10 ml Sodium Chloride (Sodium Chloride Flush Syringe 10 Ml) 10 ml IV PRN PRN PRN Reason: LINE FLUSH Exam - Constitutional Vital Signs: Temp Pulse Resp BP Pulse Ox 98.1 F 41 L 18 112/67 99 02/15/18 11:00 02/15/18 11:00 02/15/18 11:00 02/15/18 11:00 02/15/18 11:00 - Labs CBC & Chem 7: 02/15/18 10:12 02/15/18 02:30 Lab Results: Laboratory Results - last 24 hr 02/14/18 02/14/18 02/15/18 10:27 20:55 02:30 WBC 7.4 RBC 4.60 Hgb 14.7 13.9 Hct 43.3 41.5 MCV 90 MCH 30 MCHC 34 RDW 14.2 Plt Count 199 Lymph % (Auto) 36.4 H [place] % (Auto) 9.3 H Eos % (Auto) 0.9 Baso % (Auto) 0.6 Lymph # 2.7 [place] # 0.7 Eos # 0.1 Baso # 0.0 Seg Neutrophils % 52.8 Seg Neutrophils # 3.9 Sodium Potassium Chloride Carbon Dioxide Anion Gap BUN Creatinine Estimated GFR BUN/Creatinine Ratio Glucose Calcium Total Bilirubin AST ALT Alkaline Phosphatase Total Creatine Kinase 166 CK-MB (CK-2) 1.4 CK-MB (CK-2) Rel Index 0.8 Total Protein Albumin Albumin/Globulin Ratio 02/15/18 02/15/18 02:30 10:12 WBC RBC Hgb 14.5 Hct 43.6 MCV MCH MCHC RDW Plt Count Lymph % (Auto) [place] % (Auto) Eos % (Auto) Baso % (Auto) Lymph # [place] # Eos # Baso # Seg Neutrophils % Seg Neutrophils # Sodium 138 Potassium 4.1 Chloride 103.2 Carbon Dioxide 23 Anion Gap 16 BUN 13 Creatinine 0.9 Estimated GFR > 60 BUN/Creatinine Ratio 14 Glucose 97 Calcium 8.2 L Total Bilirubin 1.00 AST 12 ALT 14 Alkaline Phosphatase 56 Total Creatine Kinase CK-MB (CK-2) CK-MB (CK-2) Rel Index Total Protein 5.8 L Albumin 3.7 L Albumin/Globulin Ratio 1.8 Assessment and Plan Patient seen and examined. Agree with note by Beverley Padilla. Will plan for EGD today. Further recommendations following procedure.
--- NOTE | 2018-02-15 09:35 | Progress Note ---
<MAYLIN MCALLISTER - Last Filed: 02/15/18 13:49> Assessment and Plan Assessment and plan: 27-year-old male who presented to the emergency room with hematemesis and abdominal pain. Upper GI bleed Patient is status post EGD, no evidence of upper GI bleed-esophagitis and gastritis, H&H is stable Continue IV Protonix, patient to stop Goody powder and all other NSAIDs GI following Esophagitis Patient will continue IV Protonix Gastritis Treatment is same as above, discontinue all NSAIDs Cocaine abuse Patient counseled about cocaine use. Abdominal CAT scan was done to rule out ischemic bowel secondary to cocaine as per the emergency room physician. DVT prophylaxis Only SCDs C History Interval history: Patient continues to complains of epigastric abdominal pain, denies nausea and vomiting. Labs chart notes and nursing notes reviewed. Hospitalist Physical - Constitutional Vitals: Temp Pulse Resp BP Pulse Ox 98.9 F 43 L 14 114/65 96 02/15/18 05:00 02/15/18 05:00 02/15/18 05:00 02/15/18 05:00 02/15/18 05:00 General appearance: Present: no acute distress, well-nourished - EENT Eyes: Present: PERRL, EOM intact ENT: hearing intact, clear oral mucosa - Neck Neck: Present: supple, normal ROM - Respiratory Respiratory effort: normal Respiratory: bilateral: CTA - Cardiovascular Rhythm: regular Heart Sounds: Present: S1 & S2 - Extremities Extremities: no ischemia, No edema - Abdominal General gastrointestinal: soft, tender, non-distended Localized gastrointestinal: tender: epigastric periumbilical - Integumentary Integumentary: Present: clear, warm, dry - Psychiatric Psychiatric: appropriate mood/affect, intact judgment & insight, cooperative - Neurologic Neurologic: CNII-XII intact, moves all extremities - Allied Health Allied health notes reviewed: nursing Results - Labs CBC & Chem 7: 02/15/18 10:12 02/15/18 02:30 Labs: Laboratory Last Values WBC 7.4 K/mm3 (4.5-11.0) 02/15/18 02:30 RBC 4.60 M/mm3 (3.65-5.03) 02/15/18 02:30 Hgb 13.9 gm/dl (11.8-15.2) 02/15/18 02:30 Hct 41.5 % (35.5-45.6) 02/15/18 02:30 MCV 90 fl (84-94) 02/15/18 02:30 MCH 30 pg (28-32) 02/15/18 02:30 MCHC 34 % (32-34) 02/15/18 02:30 RDW 14.2 % (13.2-15.2) 02/15/18 02:30 Plt Count 199 K/mm3 (140-440) 02/15/18 02:30 Lymph % (Auto) 36.4 % (13.4-35.0) H 02/15/18 02:30 [place] % (Auto) 9.3 % (0.0-7.3) H 02/15/18 02:30 Eos % (Auto) 0.9 % (0.0-4.3) 02/15/18 02:30 Baso % (Auto) 0.6 % (0.0-1.8) 02/15/18 02:30 Lymph # 2.7 K/mm3 (1.2-5.4) 02/15/18 02:30 [place] # 0.7 K/mm3 (0.0-0.8) 02/15/18 02:30 Eos # 0.1 K/mm3 (0.0-0.4) 02/15/18 02:30 Baso # 0.0 K/mm3 (0.0-0.1) 02/15/18 02:30 Seg Neutrophils % 52.8 % (40.0-70.0) 02/15/18 02:30 Seg Neutrophils # 3.9 K/mm3 (1.8-7.7) 02/15/18 02:30 PT 13.5 Sec. (12.2-14.9) 02/14/18 10:33 INR 0.98 (0.87-1.13) 02/14/18 10:33 APTT 27.9 Sec. (24.2-36.6) 02/14/18 10:33 Sodium 138 mmol/L (137-145) 02/15/18 02:30 Potassium 4.1 mmol/L (3.6-5.0) 02/15/18 02:30 Chloride 103.2 mmol/L (98-107) 02/15/18 02:30 Carbon Dioxide 23 mmol/L (22-30) 02/15/18 02:30 Anion Gap 16 mmol/L 02/15/18 02:30 BUN 13 mg/dL (9-20) 02/15/18 02:30 Creatinine 0.9 mg/dL (0.8-1.5) 02/15/18 02:30 Estimated GFR > 60 ml/min 02/15/18 02:30 BUN/Creatinine Ratio 14 % 02/15/18 02:30 Glucose 97 mg/dL (75-100) 02/15/18 02:30 Lactic Acid 1.90 mmol/L (0.7-2.0) 02/14/18 10:27 Calcium 8.2 mg/dL (8.4-10.2) L 02/15/18 02:30 Magnesium 1.80 mg/dL (1.7-2.3) 02/14/18 10:27 Total Bilirubin 1.00 mg/dL (0.1-1.2) 02/15/18 02:30 Direct Bilirubin 0.2 mg/dL (0-0.2) 02/14/18 10:27 Indirect Bilirubin 0.8 mg/dL 02/14/18 10:27 AST 12 units/L (5-40) 02/15/18 02:30 ALT 14 units/L (7-56) 02/15/18 02:30 Alkaline Phosphatase 56 units/L (35-129) 02/15/18 02:30 Total Creatine Kinase 166 units/L (55-170) 02/14/18 10:27 CK-MB (CK-2) 1.4 ng/mL (0.0-4.0) 02/14/18 10:27 CK-MB (CK-2) Rel Index 0.8 (0-4) 02/14/18 10:27 Total Protein 5.8 g/dL (6.3-8.2) L 02/15/18 02:30 Albumin 3.7 g/dL (3.9-5) L 02/15/18 02:30 Albumin/Globulin Ratio 1.8 % 02/15/18 02:30 Lipase 36 units/L (13-60) 02/14/18 10:27 Urine Color Yellow (Yellow) 02/14/18 10:35 Urine Turbidity Clear (Clear) 02/14/18 10:35 Urine pH 6.0 (5.0-7.0) 02/14/18 10:35 Ur Specific [place] 1.025 (1.003-1.030) 02/14/18 10:35 Urine Protein <15 mg/dl mg/dL (Negative) 02/14/18 10:35 Urine Glucose (UA) Neg mg/dL (Negative) 02/14/18 10:35 Urine Ketones Tr mg/dL (Negative) 02/14/18 10:35 Urine Blood Neg (Negative) 02/14/18 10:35 Urine Nitrite Neg (Negative) 02/14/18 10:35 Urine Bilirubin Neg (Negative) 02/14/18 10:35 Urine Urobilinogen 4.0 mg/dL (<2.0) 02/14/18 10:35 Ur Leukocyte Esterase Neg (Negative) 02/14/18 10:35 Urine WBC (Auto) 5.0 /HPF (0.0-6.0) 02/14/18 10:35 Urine RBC (Auto) 2.0 /HPF (0.0-6.0) 02/14/18 10:35 U Epithel Cells (Auto) < 1.0 /HPF (0-13.0) 02/14/18 10:35 Urine Bacteria (Auto) 1+ /HPF (Negative) 02/14/18 10:35 Amorphous Crystals Few 02/14/18 10:35 Urine Mucus Few /HPF 02/14/18 10:35 Urine Opiates Screen Presumptive negative 02/14/18 10:35 Urine Methadone Screen Presumptive negative 02/14/18 10:35 Ur Barbiturates Screen Presumptive negative 02/14/18 10:35 Ur Phencyclidine Scrn Presumptive negative 02/14/18 10:35 Ur Amphetamines Screen Presumptive negative 02/14/18 10:35 U Benzodiazepines Scrn Presumptive negative 02/14/18 10:35 Urine Cocaine Screen Presumptive positive 02/14/18 10:35 U Marijuana (THC) Screen Presumptive positive 02/14/18 10:35 Drugs of Abuse Note Disclamer 02/14/18 10:35 Blood Type A POSITIVE 02/14/18 10:33 Antibody Screen Negative 02/14/18 10:33 <HUAN RAMEY O - Last Filed: 02/15/18 16:37> Assessment and Plan Assessment and plan: I saw and evaluated the patient. I agree with the findings and the plan of care as documented in the Nurse Practitioner's~note, with the following corrections and additions. Patient with GI bleed. EGD revealed esophagitis, gastritis. Heart rate in 40s. Will obtain EKG. If he becomes symptomatic or if abnormal Tele, may call Cardiology. Hospitalist Physical - Constitutional Vitals: Temp Pulse Resp BP Pulse Ox 97.6 F 41 L 14 118/71 97 02/15/18 13:35 02/15/18 13:50 02/15/18 13:50 02/15/18 13:50 02/15/18 13:50 Results - Labs CBC & Chem 7: 02/15/18 10:12 02/15/18 02:30 Labs: Laboratory Last Values WBC 7.4 K/mm3 (4.5-11.0) 02/15/18 02:30 RBC 4.60 M/mm3 (3.65-5.03) 02/15/18 02:30 Hgb 14.5 gm/dl (11.8-15.2) 02/15/18 10:12 Hct 43.6 % (35.5-45.6) 02/15/18 10:12 MCV 90 fl (84-94) 02/15/18 02:30 MCH 30 pg (28-32) 02/15/18 02:30 MCHC 34 % (32-34) 02/15/18 02:30 RDW 14.2 % (13.2-15.2) 02/15/18 02:30 Plt Count 199 K/mm3 (140-440) 02/15/18 02:30 Lymph % (Auto) 36.4 % (13.4-35.0) H 02/15/18 02:30 [place] % (Auto) 9.3 % (0.0-7.3) H 02/15/18 02:30 Eos % (Auto) 0.9 % (0.0-4.3) 02/15/18 02:30 Baso % (Auto) 0.6 % (0.0-1.8) 02/15/18 02:30 Lymph # 2.7 K/mm3 (1.2-5.4) 02/15/18 02:30 [place] # 0.7 K/mm3 (0.0-0.8) 02/15/18 02:30 Eos # 0.1 K/mm3 (0.0-0.4) 02/15/18 02:30 Baso # 0.0 K/mm3 (0.0-0.1) 02/15/18 02:30 Seg Neutrophils % 52.8 % (40.0-70.0) 02/15/18 02:30 Seg Neutrophils # 3.9 K/mm3 (1.8-7.7) 02/15/18 02:30 PT 13.5 Sec. (12.2-14.9) 02/14/18 10:33 INR 0.98 (0.87-1.13) 02/14/18 10:33 APTT 27.9 Sec. (24.2-36.6) 02/14/18 10:33 Sodium 138 mmol/L (137-145) 02/15/18 02:30 Potassium 4.1 mmol/L (3.6-5.0) 02/15/18 02:30 Chloride 103.2 mmol/L (98-107) 02/15/18 02:30 Carbon Dioxide 23 mmol/L (22-30) 02/15/18 02:30 Anion Gap 16 mmol/L 02/15/18 02:30 BUN 13 mg/dL (9-20) 02/15/18 02:30 Creatinine 0.9 mg/dL (0.8-1.5) 02/15/18 02:30 Estimated GFR > 60 ml/min 02/15/18 02:30 BUN/Creatinine Ratio 14 % 02/15/18 02:30 Glucose 97 mg/dL (75-100) 02/15/18 02:30 Lactic Acid 1.90 mmol/L (0.7-2.0) 02/14/18 10:27 Calcium 8.2 mg/dL (8.4-10.2) L 02/15/18 02:30 Magnesium 1.80 mg/dL (1.7-2.3) 02/14/18 10:27 Total Bilirubin 1.00 mg/dL (0.1-1.2) 02/15/18 02:30 Direct Bilirubin 0.2 mg/dL (0-0.2) 02/14/18 10:27 Indirect Bilirubin 0.8 mg/dL 02/14/18 10:27 AST 12 units/L (5-40) 02/15/18 02:30 ALT 14 units/L (7-56) 02/15/18 02:30 Alkaline Phosphatase 56 units/L (35-129) 02/15/18 02:30 Total Creatine Kinase 166 units/L (55-170) 02/14/18 10:27 CK-MB (CK-2) 1.4 ng/mL (0.0-4.0) 02/14/18 10:27 CK-MB (CK-2) Rel Index 0.8 (0-4) 02/14/18 10:27 Total Protein 5.8 g/dL (6.3-8.2) L 02/15/18 02:30 Albumin 3.7 g/dL (3.9-5) L 02/15/18 02:30 Albumin/Globulin Ratio 1.8 % 02/15/18 02:30 Lipase 36 units/L (13-60) 02/14/18 10:27 Urine Color Yellow (Yellow) 02/14/18 10:35 Urine Turbidity Clear (Clear) 02/14/18 10:35 Urine pH 6.0 (5.0-7.0) 02/14/18 10:35 Ur Specific [place] 1.025 (1.003-1.030) 02/14/18 10:35 Urine Protein <15 mg/dl mg/dL (Negative) 02/14/18 10:35 Urine Glucose (UA) Neg mg/dL (Negative) 02/14/18 10:35 Urine Ketones Tr mg/dL (Negative) 02/14/18 10:35 Urine Blood Neg (Negative) 02/14/18 10:35 Urine Nitrite Neg (Negative) 02/14/18 10:35 Urine Bilirubin Neg (Negative) 02/14/18 10:35 Urine Urobilinogen 4.0 mg/dL (<2.0) 02/14/18 10:35 Ur Leukocyte Esterase Neg (Negative) 02/14/18 10:35 Urine WBC (Auto) 5.0 /HPF (0.0-6.0) 02/14/18 10:35 Urine RBC (Auto) 2.0 /HPF (0.0-6.0) 02/14/18 10:35 U Epithel Cells (Auto) < 1.0 /HPF (0-13.0) 02/14/18 10:35 Urine Bacteria (Auto) 1+ /HPF (Negative) 02/14/18 10:35 Amorphous Crystals Few 02/14/18 10:35 Urine Mucus Few /HPF 02/14/18 10:35 Urine Opiates Screen Presumptive negative 02/14/18 10:35 Urine Methadone Screen Presumptive negative 02/14/18 10:35 Ur Barbiturates Screen Presumptive negative 02/14/18 10:35 Ur Phencyclidine Scrn Presumptive negative 02/14/18 10:35 Ur Amphetamines Screen Presumptive negative 02/14/18 10:35 U Benzodiazepines Scrn Presumptive negative 02/14/18 10:35 Urine Cocaine Screen Presumptive positive 02/14/18 10:35 U Marijuana (THC) Screen Presumptive positive 02/14/18 10:35 Drugs of Abuse Note Disclamer 02/14/18 10:35 Blood Type A POSITIVE 02/14/18 10:33 Antibody Screen Negative 02/14/18 10:33
[2018-02-15] MEDS: SODIUM CHLORIDE FLUSH SYRINGE 10 ML IV SCH (10:12)
[2018-02-15] MEDS: PROTONIX IV SCH (10:12)
[2018-02-15 10:43] LABS: Hematocrit 43.6 % (35.5-45.6); Hemoglobin 14.5 gm/dl (11.8-15.2)
[2018-02-15] MEDS ORDERED: DIPRIVAN 10 MG/ML IV ONE (13:14)
--- NOTE | 2018-02-15 13:24 | Anesthesia Consultation ---
Anesthesia Consult and Med Hx - Airway Anesthetic Teeth Evaluation: Good ROM Head & Neck: Adequate Mental/Hyoid Distance: Adequate Mallampati Class: Class II Intubation Access Assessment: Good - Pulmonary Exam CTA: Yes - Cardiac Exam Cardiac Exam: RRR - Pre-Operative Health Status ASA Pre-Surgery Classification: ASA2 Proposed Anesthetic Plan: TIVA - Pulmonary Hx Smoking: Yes Hx Asthma: Yes COPD: No Hx Pneumonia: No - Cardiovascular System Hx Hypertension: No Hx Coronary Artery Disease: No Hx Heart Attack/AMI: No Hx Angina: No Hx Percutaneous Transluminal Coronary Angioplasty (PTCA): No Hx Pacemaker: No Hx Internal Defibrillator: No Hx Valvular Heart Disease: No Hx Heart Murmur: No Hx Peripheral Vascular Disease: No - Central Nervous System Hx Psychiatric Problems: No - Gastrointestinal Hx Ulcer: Yes - Endocrine Hx Renal Disease: No Hx End Stage Renal Disease: No Hx Cirrhosis: No - Other Systems Hx Alcohol Use: Yes Hx Substance Use: Yes Hx Cancer: No
--- NOTE | 2018-02-15 13:25 | Anesthesia Day of Surgery ---
Anesthesia Day of Surgery - Day of Surgery Patient Examined: Yes Patient H&P Reviewed: Yes Patient is NPO: Yes Beta Blockers: No Cardiac Clearance: Yes Pulmonary Clearance: Yes Devin's Test: N/A
--- NOTE | 2018-02-15 13:33 | Post Operative Note ---
Pre-op diagnosis: hematemesis Post-op diagnosis: other (severe erythematous mucosa in gastric body/fundus, esophagitis) Findings: gastritis (fundus and proximal body), esophagitis, otherwise no high risk bleeding lesions Procedure: EGD Anesthesia: MAC Surgeon: YELENA RIVERA Estimated blood loss: none Pathology: none Condition: stable Disposition: floor
--- NOTE | 2018-02-15 13:33 | Operative Report ---
Operative Report Operative Report: Esophagogastroduodenoscopy Procedure Note Date of procedure: 02/15/2018 Endoscopist: Don farris Pre-op diagnosis: hematemesis, n/v, abdominal pain Post-op diagnosis: erythematous gastric mucosa, esophagitis Anesthesia: MAC Complications: No immediate complications Estimated blood loss: none Procedure: After consent was obtained, the patient was placed in the left lateral decubitus position. The fujinon endoscope was inserted into the patient 's mouth under direct vision, and advanced to the 2nd portion of duodenum without difficulty. The patient tolerated the procedure well. The views of the mucosa were good. Patient's vital signs were monitored continuously throughout the procedure. Findings: There was moderately-severe esophagitis in the lower third of the esophagus. There was a localized area of severe erythematous mucosa in the proximal gastric body/fundus of the stomach. Suspect this is secondary to multiple retching episodes. No high risk bleeding lesions seen in the stomach. The duodenum appeared normal. Impression: 1. Esophagitis 2. Localized gastritis, likely 2/2 nausea/vomiting episodes. No high risk bleeding lesions or blood seen during procedure. Recommendations: -ppi po daily -d/c nsaids, polysubstance abuse -okay to restart diet from gi stand point will sign off, please call as needed or with questions.
[2018-02-15] MEDS ORDERED: NACL 0.9% 1000 ML 1,000 ML IV SCH (14:00)
[2018-02-15 17:14] VITALS: BP 109/61
[2018-02-15] MEDS: D5NS 1,000 ML IV SCH (17:59)
[2018-02-15 18:13] LABS: Hematocrit 43.2 % (35.5-45.6); Hemoglobin 14.3 gm/dl (11.8-15.2)
[2018-02-16] MEDS ORDERED: Fluarix Quad 2017-2018(36 MOS+ IM ONE (12:00)
== END 2018-02-15 22:24 | disposition left against medical advice (07) | DRG 379 ==
LOC: ED 09:30 → 3A 12:29
PROVIDERS: ADMIT Internal Medicine; ATTEND Internal Medicine
PROC: 0DJ08ZZ Inspection of Upper Intestinal Tract, Via Natural or Artificial Opening Endoscopic (ICD-10-PCS; principal; 2018-02-15)
DX: K29.71 Gastritis, unspecified, with bleeding (principal); F14.10 Cocaine abuse, uncomplicated; K20.9 Esophagitis, unspecified; J45.909 Unspecified asthma, uncomplicated; F17.200 Nicotine dependence, unspecified, uncomplicated; K21.9 Gastro-esophageal reflux disease without esophagitis
CPT/HCPCS: 36415; 71045; 74177; 80048; 80053; 80074; 80307; 81001; 82140; 82550; 82553; 83690; 83735; 85014; 85018; 85025; 85610; 85730; 86850; 86900; 86901; 93005; 93010; 96374; 96375; 96376; C9113; J2270; J2405; J2704; J7030; J7042; Q9967

== ENCOUNTER 2022-05-03 10:32 | Emergency (ER) | payer SELFPAY ==
[2022-05-03] MEDS ORDERED: ONDANSETRON 4 MG/2 ML INJ IV ONE (11:32)
[2022-05-03] MEDS ORDERED: SODIUM CHLORIDE 0.9% 1000 ML 1,000 ML IV ONE (11:32)
[2022-05-03] MEDS ORDERED: MORPHINE 4 MG/1 ML INJ IV ONE (11:32)
--- NOTE | 2022-05-03 11:42 | Emergency Department Report ---
ED General Adult HPI - General Chief complaint: Nausea/Vomiting/Diarrhea Stated complaint: VOMITING/STOMACH PAIN Time Seen by Provider: 05/03/22 11:09 Source: EMS Mode of arrival: Stretcher Limitations: No Limitations - History of Present Illness Initial comments: Patient presents with complaints of generalized abdominal pain x 3 days, sharp/cramping, non radiating, 10/10, not worsened or relieved by anything. Endorses nausea, bloody but non bilious vomiting. Last BM was 3 days ago and diarrheal. Had diarrhea x 2 days (multiple bouts) without blood or mucus prior to his last BM. Denies recent travel, known sick contacts, antibiotics. Ate out prior to the symptoms starting. Endorses flatulence. Denies dysuria, frequency, urgency. Severity scale (0 -10): 0 - Related Data Home Medications Medication Instructions Recorded Confirmed Last Taken Omeprazole Magnesium [PriLOSEC Otc] 20 mg PO BID 11/17/14 09/28/16 11/14/14 Previous Rx's Medication Instructions Recorded Last Taken Type Ondansetron [Zofran ODT TAB] 4 mg PO Q6H #10 tab.rapdis 11/17/14 Unknown Rx Famotidine [Pepcid] 10 mg PO BID #30 tablet 06/24/15 Unknown Rx Omeprazole Magnesium [PriLOSEC Otc] 40 mg PO QDAY #60 tablet. 06/24/15 Unknown Rx Famotidine [Pepcid] 20 mg PO BID #30 tablet 09/28/16 Unknown Rx HYDROcodone/APAP 5-325 [Wolverine 1 each PO Q6HR PRN #10 tablet 09/28/16 Unknown Rx 5/325] Promethazine [Phenergan TAB] 25 mg PO Q6HR PRN #20 tab 09/28/16 Unknown Rx Promethazine [Phenergan] 25 mg [place] Q6HR PRN #10 supp.rect 09/28/16 Unknown Rx Allergies Allergy/AdvReac Type Severity Reaction Status Date / Time No Known Allergies Allergy Verified 05/03/22 10:57 ED Review of Systems ROS: Stated complaint: VOMITING/STOMACH PAIN Other details as noted in HPI Comment: All other systems reviewed and negative Constitutional: denies: chills, fever ED Past Medical Hx - Past Medical History Previous Medical History?: Yes Hx Hypertension: No Hx Heart Attack/AMI: No Hx Congestive Heart Failure: No Hx Diabetes: No Hx Deep Vein Thrombosis: No Hx Pulmonary Embolism: No Hx Renal Disease: No Hx Kidney Stones: Yes Hx Asthma: Yes Hx COPD: No Hx Tuberculosis: No Hx HIV: No Additional medical history: Gastritis, duodenitis. Hx of ETOH abuse - Surgical History Hx Coronary Stent: No Hx Pacemaker: No Hx Internal Defibrillator: No Additional Surgical History: tonsillectomy - Social History Smoking Status: Current Every Day Smoker - Medications Home Medications: Home Medications Medication Instructions Recorded Confirmed Last Taken Type Omeprazole Magnesium [PriLOSEC Otc] 20 mg PO BID 11/17/14 09/28/16 11/14/14 History Ondansetron [Zofran ODT TAB] 4 mg PO Q6H #10 tab.rapdis 11/17/14 09/28/16 Unknown Rx Famotidine [Pepcid] 10 mg PO BID #30 tablet 06/24/15 09/28/16 Unknown Rx Omeprazole Magnesium [PriLOSEC Otc] 40 mg PO QDAY #60 tablet.dr 06/24/15 09/28/16 Unknown Rx Famotidine [Pepcid] 20 mg PO BID #30 tablet 09/28/16 Unknown Rx HYDROcodone/APAP 5-325 [Wolverine 1 each PO Q6HR PRN #10 tablet 09/28/16 Unknown Rx 5/325] Promethazine [Phenergan TAB] 25 mg PO Q6HR PRN #20 tab 09/28/16 Unknown Rx Promethazine [Phenergan] 25 mg [place] Q6HR PRN #10 supp.rect 09/28/16 Unknown Rx ED Physical Exam - General Limitations: No Limitations General appearance: alert, other (writhing in pain) - Head Head exam: Present: atraumatic, normocephalic - Eye Eye exam: Present: PERRL, EOMI - ENT ENT exam: Present: mucous membranes moist, other (airway patent) - Neck Neck exam: Present: other (supple; no JVD) - Respiratory Respiratory exam: Present: other (good air entry, nml I:E, CTAB, no use of KASHIF) - Cardiovascular Cardiovascular Exam: Present: regular rate. Absent: rubs, gallop - GI/Abdominal GI/Abdominal exam: Present: other (tender to palpation diffusely; involuntary guarding present; no rebound tenderness) - Rectal Rectal exam: Present: other (fashion illustrator preset; brown stool in rectal vault) - Extremities Exam Extremities exam: Present: full ROM. Absent: tenderness - Back Exam Back exam: Present: full ROM. Absent: CVA tenderness (R), CVA tenderness (L) - Neurological Exam Neurological exam: Present: alert, oriented X3, CN II-XII intact. Absent: motor sensory deficit - Skin Skin exam: Present: warm, normal color ED Course Vital Signs 05/03/22 10:54 Temperature 97.9 F Pulse Rate 50 L Respiratory 16 Rate Blood Pressure 110/60 [Left] O2 Sat by Pulse 98 Oximetry ED Medical Decision Making - Lab Data Result diagrams: 05/03/22 11:42 05/03/22 11:42 Laboratory Tests 05/03/22 05/03/22 11:42 11:42 WBC 9.1 RBC 5.24 H Hgb 15.3 H Hct 48.2 H MCV 92 MCH 29 MCHC 32 RDW 14.5 Plt Count 264 Lymph % (Auto) 19.9 Owsley % (Auto) 6.0 Eos % (Auto) 0.0 Baso % (Auto) 0.4 Lymph # (Auto) 1.8 Owsley # (Auto) 0.5 Eos # (Auto) 0.0 Baso # (Auto) 0.0 Seg Neutrophils % 73.7 H Seg Neutrophils # 6.7 Sodium 138 Potassium 3.9 Chloride 104.7 Carbon Dioxide 20 L Anion Gap 17 BUN 11 Creatinine 1.0 Estimated GFR > 60 BUN/Creatinine Ratio 11 Glucose 110 H Calcium 9.7 Total Bilirubin 0.80 AST 13 ALT 15 Alkaline Phosphatase 85 Total Protein 7.4 Albumin 4.6 Albumin/Globulin Ratio 1.6 Lipase 19 Stool for occult blood negative UA and CT abd/pelvis still pending @ 15:00. Critical care attestation.: If time is entered above; I have spent that time in minutes in the direct care of this critically ill patient, excluding procedure time. ED Disposition Clinical Impression: Abdominal pain Disposition: 30 STILL A PATIENT Is pt being admited?: No Condition: Stable Time of Disposition: 15:00 (Patient care transferred to Dr. Hampton (oncoming ER doc @ 15:00). Sign out was given by me to him. )
[2022-05-03 12:17] LABS: Alanine Aminotransferase 15 units/L (7-56); Albumin 4.6 g/dL (3.9-5); BUN/Creatinine Ratio 11; Blood Urea Nitrogen 11 mg/dL (9-20); Calcium 9.7 mg/dL (8.4-10.2); Hemolysis Index 5
[2022-05-03 12:28] LABS: Basophils % (Auto) 0.4 % (0.0-1.8); Hematocrit 48.2 % (35.5-45.6); Hemoglobin 15.3 gm/dl (11.8-15.2); Lymphocytes # (Auto) 1.8 K/mm3 (1.2-5.4); Lymphocytes % (Auto) 19.9 % (13.4-35.0); Mean Corpuscular HGB Conc 32 % (32-34); Mean Corpuscular Volume 92 fl (84-94); Monocytes # (Auto) 0.5 K/mm3 (0.0-0.8); Platelet Count 264 K/mm3 (140-440); Red Blood Count 5.24 M/mm3 (3.65-5.03); Red Cell Distribution Width 14.5 % (13.2-15.2)
--- NOTE | 2022-05-03 16:13 | Cat Scan Report ---
CT ABDOMEN AND PELVIS WITH CONTRAST HISTORY: abdominal pain. COMPARISON: None. TECHNIQUE: CT images of the abdomen and pelvis were obtained following administration of intravenous contrast. All CT scans at this location are performed using CT dose reduction for ALARA by means of automated exposure control. CONTRAST: 100 ml of intravenous contrast administered. FINDINGS: Lungs/bones: Lung bases are clear Abdomen/pelvis: The liver, spleen, adrenal glands, pancreas, gallbladder and upper GI tract is unrem arkable. Diffuse thickening of the distal esophagus and GE junction. There may be some mild thickenin g throughout the colon however incomplete distention and lack of oral contrast limits evaluation. No obstructive changes seen. Constipation is noted. Bilateral kidneys appear normal. No acute bone findi ngs are seen. IMPRESSION: 1. No bowel obstruction is seen. Questionable mild thickening throughout the colon could represent mi ld colitis however this could also be secondary to incomplete distention. 2. Fatty infiltration of the liver. Signer Name: Juan M Newell MD Signed: 05/03/2022 4:08 PM Workstation Name: [id number]
[2022-05-03 19:47] VITALS: BP 116/78
== END 2022-05-03 19:49 | disposition home or self-care (01) ==
LOC: ED 10:32
DX: R10.9 Unspecified abdominal pain (principal); F17.200 Nicotine dependence, unspecified, uncomplicated; J45.909 Unspecified asthma, uncomplicated
CPT/HCPCS: 36415; 74177; 80053; 82270; 83690; 85025; 96361; 96374; 96375; 99284; J2270; J2405; J7030; Q9967

== ENCOUNTER 2022-05-13 07:14 | Emergency (ER) | payer SELFPAY ==
[2022-05-13] MEDS ORDERED: SODIUM CHLORIDE 0.9% 1000 ML 1,000 ML IV SCH (08:00)
[2022-05-13] MEDS ORDERED: ONDANSETRON 4 MG/2 ML INJ IV ONE (08:03)
[2022-05-13] MEDS ORDERED: SODIUM CHLORIDE 0.9% 1000 ML 1,000 ML ONE (08:05)
--- NOTE | 2022-05-13 08:12 | Emergency Department Report ---
ED Abdominal Pain HPI - General Chief Complaint: Nausea/Vomiting/Diarrhea Stated Complaint: VOMITTING BLOOD Time Seen by Provider: 05/13/22 08:01 Source: patient, EMS Mode of arrival: Stretcher Limitations: No Limitations - History of Present Illness Initial Comments: 31-year-old male with a history of PUD diagnosed 2008 who now presents with epigastric discomfort associated with nausea and vomiting that started overnight and progressively getting worse. Patient reported he cannot keep any food or fluids since the symptoms started. No fever or chills reported. Patient mentioned when asked if he has been seen by cash room clerk and he said no. When asked why he said he has not got a chance to make it happen. Patient denies any diarrhea or constipation. Patient also denied any alcohol drink per reports regular use of marijuana. No other modifying or associated factors reported. MD Complaint: abdominal pain - Related Data Home Medications Medication Instructions Recorded Confirmed Last Taken Omeprazole Magnesium [PriLOSEC Otc] 20 mg PO BID 11/17/14 09/28/16 11/14/14 Previous Rx's Medication Instructions Recorded Last Taken Type Ondansetron [Zofran ODT TAB] 4 mg PO Q6H #10 tab.rapdis 11/17/14 Unknown Rx Famotidine [Pepcid] 10 mg PO BID #30 tablet 06/24/15 Unknown Rx Omeprazole Magnesium [PriLOSEC Otc] 40 mg PO QDAY #60 tablet. 06/24/15 Unknown Rx Famotidine [Pepcid] 20 mg PO BID #30 tablet 09/28/16 Unknown Rx HYDROcodone/APAP 5-325 [Martin 1 each PO Q6HR PRN #10 tablet 09/28/16 Unknown Rx 5/325] Promethazine [Phenergan TAB] 25 mg PO Q6HR PRN #20 tab 09/28/16 Unknown Rx Promethazine [Phenergan] 25 mg [place] Q6HR PRN #10 supp.rect 09/28/16 Unknown Rx metroNIDAZOLE [Flagyl] 500 mg PO Q12HR 7 Days #14 tab NS 05/03/22 Unknown Rx predniSONE [Deltasone] 20 mg PO QDAY 7 Days #7 tab NS 05/03/22 Unknown Rx Ondansetron [Zofran ODT TAB] 8 mg PO Q8HR 5 Days #20 tab.rapdis 05/13/22 Unknown Rx NS Pantoprazole [Protonix] 40 mg PO QDAY 30 Days #30 tablet NS 05/13/22 Unknown Rx metroNIDAZOLE [Flagyl] 500 mg PO Q12HR 7 Days #14 tab 05/13/22 Unknown Rx Allergies Allergy/AdvReac Type Severity Reaction Status Date / Time ibuprofen AdvReac Unknown Verified 05/13/22 07:17 NSAIDS (Non-Steroidal AdvReac Bleeding Verified 05/13/22 07:55 Anti-Inflamma ED Review of Systems ROS: Stated complaint: VOMITTING BLOOD Other details as noted in HPI Comment: All other systems reviewed and negative Gastrointestinal: abdominal pain (Epigastric), nausea, vomiting ED Past Medical Hx - Past Medical History Hx Hypertension: No Hx Heart Attack/AMI: No Hx Congestive Heart Failure: No Hx Diabetes: No Hx Deep Vein Thrombosis: No Hx Pulmonary Embolism: No Hx Renal Disease: No Hx Kidney Stones: Yes Hx Asthma: Yes Hx COPD: No Hx Tuberculosis: No Hx HIV: No Additional medical history: Gastritis, duodenitis. Hx of ETOH abuse - Surgical History Hx Coronary Stent: No Hx Pacemaker: No Hx Internal Defibrillator: No Additional Surgical History: tonsillectomy - Social History Smoking Status: Current Every Day Smoker - Medications Home Medications: Home Medications Medication Instructions Recorded Confirmed Last Taken Type Omeprazole Magnesium [PriLOSEC Otc] 20 mg PO BID 11/17/14 09/28/16 11/14/14 History Ondansetron [Zofran ODT TAB] 4 mg PO Q6H #10 tab.rapdis 11/17/14 09/28/16 Unknown Rx Famotidine [Pepcid] 10 mg PO BID #30 tablet 06/24/15 09/28/16 Unknown Rx Omeprazole Magnesium [PriLOSEC Otc] 40 mg PO QDAY #60 tablet. 06/24/15 09/28/16 Unknown Rx Famotidine [Pepcid] 20 mg PO BID #30 tablet 09/28/16 Unknown Rx HYDROcodone/APAP 5-325 [Martin 1 each PO Q6HR PRN #10 tablet 09/28/16 Unknown Rx 5/325] Promethazine [Phenergan TAB] 25 mg PO Q6HR PRN #20 tab 09/28/16 Unknown Rx Promethazine [Phenergan] 25 mg [place] Q6HR PRN #10 supp.rect 11/13/16 Unknown Rx metroNIDAZOLE [Flagyl] 500 mg PO Q12HR 7 Days #14 tab NS 05/03/22 Unknown Rx predniSONE [Deltasone] 20 mg PO QDAY 7 Days #7 tab NS 05/03/22 Unknown Rx Ondansetron [Zofran ODT TAB] 8 mg PO Q8HR 5 Days #20 tab.rapdis 05/13/22 Unknown Rx NS Pantoprazole [Protonix] 40 mg PO QDAY 30 Days #30 tablet NS 05/13/22 Unknown Rx metroNIDAZOLE [Flagyl] 500 mg PO Q12HR 7 Days #14 tab 05/13/22 Unknown Rx ED Physical Exam - General Limitations: No Limitations General appearance: alert, in no apparent distress - Head Head exam: Present: normal inspection - Eye Eye exam: Present: normal appearance - ENT ENT exam: Present: normal exam, normal orophraynx, mucous membranes moist - Neck Neck exam: Present: normal inspection. Absent: tenderness - Respiratory Respiratory exam: Present: normal lung sounds bilaterally. Absent: respiratory distress, accessory muscle use - Cardiovascular Cardiovascular Exam: Present: regular rate, normal rhythm, normal heart sounds - GI/Abdominal GI/Abdominal exam: Present: soft, tenderness (Epigastric), guarding, normal bowel sounds. Absent: distended - Extremities Exam Extremities exam: Present: normal inspection, normal capillary refill. Absent: tenderness, pedal edema - Back Exam Back exam: Present: normal inspection. Absent: tenderness, CVA tenderness (R), CVA tenderness (L) - Neurological Exam Neurological exam: Present: alert, oriented X3 - Psychiatric Psychiatric exam: Present: normal affect, normal mood - Skin Skin exam: Present: warm, normal color ED Course Vital Signs 05/13/22 05/13/22 05/13/22 07:15 08:11 08:14 Pulse Rate 59 L Respiratory 18 Rate Blood Pressure Blood Pressure 130/60 [Left] O2 Sat by Pulse 96 99 98 Oximetry 05/13/22 05/13/22 05/13/22 08:16 08:30 08:46 Pulse Rate Respiratory Rate Blood Pressure 119/76 125/56 125/56 Blood Pressure [Left] O2 Sat by Pulse 97 99 96 Oximetry 05/13/22 05/13/22 05/13/22 09:00 09:16 09:32 Pulse Rate Respiratory Rate Blood Pressure 103/49 103/49 103/49 Blood Pressure [Left] O2 Sat by Pulse 94 98 98 Oximetry 05/13/22 05/13/22 05/13/22 09:46 10:00 10:16 Pulse Rate Respiratory Rate Blood Pressure 130/70 131/70 131/70 Blood Pressure [Left] O2 Sat by Pulse 98 97 97 Oximetry 05/13/22 05/13/22 05/13/22 10:30 10:46 11:00 Pulse Rate 48 L Respiratory 17 Rate Blood Pressure 127/71 127/71 119/63 Blood Pressure [Left] O2 Sat by Pulse 97 97 99 Oximetry 05/13/22 05/13/22 05/13/22 11:16 11:30 11:46 Pulse Rate 57 L 51 L 51 L Respiratory 18 15 14 Rate Blood Pressure 122/68 119/62 120/60 Blood Pressure [Left] O2 Sat by Pulse 97 98 98 Oximetry 05/13/22 05/13/22 05/13/22 12:00 12:16 12:30 Pulse Rate 55 L 44 L Respiratory 20 9 L Rate Blood Pressure 117/62 127/64 117/62 Blood Pressure [Left] O2 Sat by Pulse 98 100 100 Oximetry 05/13/22 05/13/22 05/13/22 12:47 13:01 13:17 Pulse Rate Respiratory Rate Blood Pressure 119/54 115/59 110/56 Blood Pressure [Left] O2 Sat by Pulse 100 99 Oximetry 05/13/22 05/13/22 05/13/22 13:33 13:48 14:03 Pulse Rate Respiratory Rate Blood Pressure 106/49 105/48 106/49 Blood Pressure [Left] O2 Sat by Pulse Oximetry ED Medical Decision Making - Lab Data Result diagrams: 05/13/22 Unknown 05/13/22 Unknown - Radiology Data FINDINGS: LOWER CHEST: No significant abnormality. LIVER: No significant abnormality. GALLBLADDER: No significant abnormality. BILE DUCTS: No significant abnormality. PANCREAS: No significant abnormality. SPLEEN: No significant abnormality. ADRENALS: No significant abnormality. RIGHT KIDNEY and URETER: No significant abnormality. LEFT KIDNEY and URETER: No significant abnormality. STOMACH and SMALL BOWEL: Mild thickening of the gastric mucosa is again seen suggesting a possible mild gastritis. No mass or focal ulceration is detected. The small bowel loops are unremarkable. COLON: Moderate circumferential thickening of the ascending, transverse and descending colon is again seen and appears slightly more prominent on the previous exam suggesting a nonspecific colitis. The rectosigmoid colon and cecum appear less involved. APPENDIX: No significant abnormality. PERITONEUM: No free fluid. No free air. No fluid collection. LYMPH NODES: No significant adenopathy. AORTA and ARTERIES: No significant abnormality. IVC and VEINS: No significant abnormality. URINARY BLADDER: No significant abnormality. REPRODUCTIVE ORGANS: No significant abnormality. ADDITIONAL FINDINGS: None. SKELETAL SYSTEM: No significant abnormality. IMPRESSION: Moderate circumferential thickening of the colon is suspected as described above suggesting a nonspecific colitis. This is slightly more pronounced than on the previous exam dated 05/03/2022. There is also mild thickening of the gastric mucosa which could represent a gastritis, unchanged. No focal ulceration is identified although the stomach is poorly distended. - Medical Decision Making Here with abdominal pain associated with nausea and vomiting with blood-streaked vomiting--this is likely gastritis versus cannabis induced emesis considering the regular use of THC but rule out differential such as appendicitis, diverticulitis, cholecystitis, cholelithiasis, nephrolithiasis, pancreatitis, duodenitis, colitis, irritable bowel syndrome, cystitis, so in order to rule this out we will go ahead and order routine acute abdomen that include CBC, CMP, urinalysis, and CT imaging of the abdomen/pelvic. In the meantime we will go ahead and start IV fluid hydration, give Zofran and fentanyl for symptomatic relief while waiting for the above lab test and imaging. CT abd/pel noted with possible colitis and gastritis-- so will discharge home on flagly and Cipro with protonix and zofran. Critical care attestation.: If time is entered above; I have spent that time in minutes in the direct care of this critically ill patient, excluding procedure time. ED Disposition Clinical Impression: Epigastric abdominal pain, Colitis Gastritis Qualifiers: Gastritis type: unspecified gastritis Chronicity: unspecified Gastritis bleeding: presence of bleeding unspecified Qualified Code(s): K29.70 - Gastritis, unspecified, without bleeding Disposition: 01 HOME / SELF CARE / HOMELESS Is pt being admited?: No Does the pt Need Aspirin: No Condition: Stable Instructions: Gastritis, Adult, [id number], Abdominal Pain, Adult, Eas y-to-Read Additional Instructions: Take and complete your antibiotics as prescribed Increase your daily fluid to help your hydration Please do not hesitate to call and schedule follow-up with your primary doctor in the next 3 to 5 days for progress Please call or return to emergency room if your symptoms worsen Prescriptions: metroNIDAZOLE [Flagyl] 500 mg PO Q12HR 7 Days #14 tab Pantoprazole [Protonix] 40 mg PO QDAY 30 Days #30 tablet NS Ondansetron [Zofran ODT TAB] 8 mg PO Q8HR 5 Days #20 tab.fernie CHAPPELL Time of Disposition: 14:40
[2022-05-13 08:17] LABS: Basophils % (Auto) 0.3 % (0.0-1.8); Hematocrit 40.9 % (35.5-45.6); Hemoglobin 13.2 gm/dl (11.8-15.2); Lymphocytes # (Auto) 0.8 K/mm3 (1.2-5.4); Lymphocytes % (Auto) 11.4 % (13.4-35.0); Mean Corpuscular HGB Conc 32 % (32-34); Mean Corpuscular Volume 92 fl (84-94); Monocytes # (Auto) 0.3 K/mm3 (0.0-0.8); Monocytes % (Auto) 3.6 % (0.0-7.3); Platelet Count 200 K/mm3 (140-440); Red Blood Count 4.45 M/mm3 (3.65-5.03); Red Cell Distribution Width 14.7 % (13.2-15.2)
[2022-05-13 08:52] LABS: Alanine Aminotransferase 10 units/L (7-56); Albumin 4.2 g/dL (3.9-5); BUN/Creatinine Ratio 13; Blood Urea Nitrogen 14 mg/dL (9-20); Calcium 8.8 mg/dL (8.4-10.2); Hemolysis Index 5
[2022-05-13] MEDS ORDERED: SODIUM CHLORIDE 0.9% 100 ML IVPB IV SCH (09:00)
--- NOTE | 2022-05-13 09:53 | Cat Scan Report ---
CT ABDOMEN AND PELVIS WITH CONTRAST INDICATION / CLINICAL INFORMATION: epigastric pain with n/v. TECHNIQUE: Axial CT images were obtained through the abdomen and pelvis after 100 cc of Omnipaque 300 IV contras t. Sagittal and coronal reformatted images. All CT scans at this location are performed using CT dose reduction for ALARA by means of automated exposure control. COMPARISON: 05/03/2022 FINDINGS: LOWER CHEST: No significant abnormality. LIVER: No significant abnormality. GALLBLADDER: No significant abnormality. BILE DUCTS: No significant abnormality. PANCREAS: No significant abnormality. SPLEEN: No significant abnormality. ADRENALS: No significant abnormality. RIGHT KIDNEY and URETER: No significant abnormality. LEFT KIDNEY and URETER: No significant abnormality. STOMACH and SMALL BOWEL: Mild thickening of the gastric mucosa is again seen suggesting a possible mi ld gastritis. No mass or focal ulceration is detected. The small bowel loops are unremarkable. COLON: Moderate circumferential thickening of the ascending, transverse and descending colon is again seen and appears slightly more prominent on the previous exam suggesting a nonspecific colitis. The rectosigmoid colon and cecum appear less involved. APPENDIX: No significant abnormality. PERITONEUM: No free fluid. No free air. No fluid collection. LYMPH NODES: No significant adenopathy. AORTA and ARTERIES: No significant abnormality. IVC and VEINS: No significant abnormality. URINARY BLADDER: No significant abnormality. REPRODUCTIVE ORGANS: No significant abnormality. ADDITIONAL FINDINGS: None. SKELETAL SYSTEM: No significant abnormality. IMPRESSION: Moderate circumferential thickening of the colon is suspected as described above suggesting a nonspe cific colitis. This is slightly more pronounced than on the previous exam dated 05/03/2022. There is also mild thickening of the gastric mucosa which could represent a gastritis, unchanged. No focal ulceration is identified although the stomach is poorly distended. Signer Name: Neeraj Lopez Jr, MD Signed: 05/13/2022 9:49 AM Workstation Name: [id number]
[2022-05-13] MEDS ORDERED: HALOPERIDOL LACTATE 5 MG/1 ML INJ IV ONE (10:39)
[2022-05-13] MEDS ORDERED: diphenhydrAMINE 50 MG/ML VIAL IV ONE (10:47)
[2022-05-13 15:11] VITALS: BP 114/78
== END 2022-05-13 15:10 | disposition home or self-care (01) ==
LOC: ED 07:14
DX: N23 Unspecified renal colic (principal); K29.70 Gastritis, unspecified, without bleeding; F17.200 Nicotine dependence, unspecified, uncomplicated
CPT/HCPCS: 36415; 74177; 80053; 83690; 85025; 96374; 96375; 99284; J1200; J1630; J2405; J7030; Q9967

== ENCOUNTER 2022-06-16 20:37 | Emergency (ER) | payer SELFPAY ==
--- NOTE | 2022-06-16 22:16 | XRay Report ---
RIGHT HAND 3 VIEWS INDICATION / CLINICAL INFORMATION: Injury with right hand pain. COMPARISON: None available. FINDINGS: BONES / JOINT(S): There is an acute, comminuted transverse fracture involving the proximal shaft of t he fourth metacarpal. There is mild medial and posterior displacement of the distal fracture fragment . No dislocation. No significant arthritis. SOFT TISSUES: There is moderate soft tissue swelling involving the dorsum of the hand. ADDITIONAL FINDINGS: None. IMPRESSION: Acute, comminuted fracture of the proximal shaft of the fourth metacarpal. Signer Name: Jeancarlos Wooten MD Signed: 06/16/2022 10:12 PM Workstation Name: [id number]
[2022-06-17] MEDS ORDERED: ONDANSETRON 4 MG ODT TAB PO ONE (03:19)
[2022-06-17] MEDS ORDERED: oxyCODONE /ACETAMINOPHEN 5-325MG TAB PO ONE (03:19)
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
[2022-06-17 05:30] VITALS: BP 131/69
== END 2022-06-17 05:29 | disposition home or self-care (01) ==
LOC: ED 20:37
DX: S62.324A Displaced fracture of shaft of fourth metacarpal bone, right hand, initial encounter for closed fracture (principal); N20.0 Calculus of kidney; J45.909 Unspecified asthma, uncomplicated; F17.200 Nicotine dependence, unspecified, uncomplicated; S60.221A Contusion of right hand, initial encounter; W22.8XXA Striking against or struck by other objects, initial encounter; Y93.89 Activity, other specified; Y92.89 Other specified places as the place of occurrence of the external cause; Y99.8 Other external cause status
CPT/HCPCS: 99283; J3490; Q0162

== ENCOUNTER 2022-07-30 14:04 | Emergency (ER) | payer SELFPAY ==
[2022-07-30 14:34] VITALS: BP 108/54
== END 2022-07-30 16:00 ==
LOC: ED 14:04
DX: R04.2 Hemoptysis (principal); Z53.21 Procedure and treatment not carried out due to patient leaving prior to being seen by health care provider